=== PATIENT | female | born 1950 | race African-American/Black ===

== ENCOUNTER 2020-04-01 12:00 | Emergency (ER) | payer OTHER ==
--- OUTSIDE RECORDS SUMMARY | 2020-04-01 12:12 | XMS REPORT | Continuity of Care Document ---
:1950 Author Organization [employer] Care Team Providers Name Role Phone [employer] Unavailable Un available Problems Problem Status Onset Classification Date Comments Sourc e Date Reported DX: Active [place] [facility] Z80.3=FAMILY 0 HISTORY OF MALIGNANT NE N64.4 - Active OPID MASTODYNIA 9 Sugar Baldev d Z80.0 - FAMILY HISTOR DX: [facility] MALIGNANT NEOPLASM Z80.3 - FAMILY Active Memor ial HISTORY OF 9 [place],M H MALIGNANT NE N OPID [place] Mastodynia 10/12/2017 [place] 8 Z80.0 KNEE Active [place] REPLAC[place] 8 Z80.3 - FAMILY Active OP ID HISTORY OF 8 Sugar Baldev d MALIGNANT NE Family history 10/12/2017 [place] of malignant neoplasm of breast MASTODYNIA Active [facility] ast FAMILY HISTORY Active [place] MALIGNANT NEOPLASM OF Medications No Data Provided for This Section Allergies, Adverse Reactions, Alerts No Known Medication Allergies Immunizations No Data Provided for This Section Results Order Results Value Reference Date Interpretation Comments Source Name Range CHEM eGFR 54 PANEL 2018 Comment: [facility] eGFR is calculated using the CKD-EPI formula. In most young, healthy individuals the eGFR will be >90 mL/min/1.73m2. The eGFR declines with age. An eGFR of 60-89 may be normal in some populations, particularly the elderly, for whom the CKD-EPI formula has not been extensively validated. Use of the eGFR is not recommended in the following populations:<b r/>
Indivi duals with unstable creatinine concentrations , including patients and those with serious co-morbid conditions.

Patient s with extremes in muscle mass or diet.

The data above are obtained from the National Kidney Disease Education Program (NKDEP) which additionally recommends that when the eGFR is used in patients with extremes of body mass index for purposes of drug dosing, the eGFR should be multiplied by the estimated BMI. CHEM POC 1.2 0.5 - 1.[address] [facility] Pathology Reports No Data Provided for This Section Diagnostic Reports Report Value Date Source Breast Complete Steve 09/05/2019 [facility] BILATERAL DIGITAL DIAGNOSTIC MAMMOGRAM WITH CAD: 09/05/2019 CLINICAL: /Family History /Family History. Current study was evaluated with a Insurance Coordinator d Detection (CAD) system. COMPARISON:Comparison is mad e to exams dated: 07/14/2018 mammogram, 07/06/2017 mammogram - [facility], 07/06/2016 mammogram, 07/03/2015 mammogram, 06/27/2014 mammogram, and 06/27/2014 mammogra - [facility]. TECHNIQUE: Mammographic view s were obtained using digital acquisition. Mozendaa Version 1.3 was utilized for computer aided detection. FINDINGS: There are scattered fibroglandular densities in both breasts. There are benign calcificati ons in both breasts. There also is a biopsy clip in both breasts. No significant masses, calci fications, or other findings are seen in either breast. There has been no significant interval change. IMPRESSION: INCOMPLETE: NEEDS ADDITIONAL IMAGING EVALUATION RECOMMENDATION:No definite m ammographic evidence of malignancy or significant interval change. Ultrasound has been requested and will be perfor med at this time. The results were reviewed with the patient. COMPLETE ULTRASOUND OF BOTH BREASTS AND AXILLA: 09/05/2019 COMPARISON:Comparison is mad e to exams dated: 07/14/2018 mammogram, 07/06/2017 mammogram - [facility], 07/06/2016 mammogram, 07/03/2015 mammogram, 06/27/2014 mammogram, and 06/27/2014 mammogra - [facility]. TECHNIQUE: Current study was also evaluated with a Computer Aided Detection (CAD) system. Color flow and real-time ultrasound of both breasts four quadrants, retroareolar, and axilla regions were perfor med. Danielle scale images of the real-time examina tion were reviewed. FINDINGS: There is a small benign cyst right breast at 1 o'clock that is an incidental finding. Minimal bilateral duct ectasia is also noted. No abnormalities were seen s onographically in the left breast or either axilla. There has been no significant interval change. IMPRESSION: BENIGN RECOMMENDATION:There is no sonographic evidence of malignancy. A 1 year screening mammogram is recommended.(09/05/2020) The results were reviewed with the patient. For patients with elevated l ifetime risk of breast cancer (greater than 20%), additional surveillance with annual breast MRI is recommended. However, according to the computer calculated Radha model, thi s patient's lifetime risk is 6%. This was discus sed with the patient. This exam was interpreted at [id number] for [facility]. Sharlene Reid M.D. jt/:09/05/2019 15:24:43 [employer] Semicon[employer] Processor(s): Litzy Cooper, [facility]; Larisa Reid, [facility] letter sent: BI-RADS 1/2 OVERALL STUDY BIRADS: 2 Benign Breast Mammo Diag STEVE 09/05/2019 [facility] incl CAD MA BILATERAL DIGITAL DIAGNOSTIC MAMMOGRAM WITH CAD: 09/05/2019 CLINICAL: /Family History /Family History. Current study was evaluated with a Insurance Coordinator d Detection (CAD) system. COMPARISON:Comparison is mad e to exams dated: 07/14/2018 mammogram, 07/06/2017 mammogram - [facility], 07/06/2016 mammogram, 07/03/2015 mammogram, 06/27/2014 mammogram, and 06/27/2014 mammogra m - [facility]. TECHNIQUE: Mammographic view s were obtained using digital acquisition. Mozendaa Version 1.3 was utilized for computer aided detection. FINDINGS: There are scattered fibroglandular densities in both breasts. There are benign calcificati ons in both breasts. There also is a biopsy clip in both breasts. No significant masses, calci fications, or other findings are seen in either breast. There has been no significant interval change. IMPRESSION: INCOMPLETE: NEEDS ADDITIONAL IMAGING EVALUATION RECOMMENDATION:No definite m ammographic evidence of malignancy or significant interval change. Ultrasound has been requested and will be perfor med at this time. The results were reviewed with the patient. COMPLETE ULTRASOUND OF BOTH BREASTS AND AXILLA: 09/05/2019 COMPARISON:Comparison is mad e to exams dated: 07/14/2018 mammogram, 07/06/2017 mammogram - [facility], 07/06/2016 mammogram, 07/03/2015 mammogram, 06/27/2014 mammogram, and 06/27/2014 mammogra m - [facility]. TECHNIQUE: Current study was also evaluated with a Computer Aided Detection (CAD) system. Color flow and real-time ultrasound of both breasts four quadrants, retroareolar, and axilla regions were perfor med. Danielle scale images of the real-time examina tion were reviewed. FINDINGS: There is a small benign cyst right breast at 1 o'clock that is an incidental finding. Minimal bilateral duct ectasia is also noted. No abnormalities were seen s onographically in the left breast or either axilla. There has been no significant interval change. IMPRESSION: BENIGN RECOMMENDATION:There is no sonographic evidence of malignancy. A 1 year screening mammogram is recommended.(09/05/2020) The results were reviewed with the patient. For patients with elevated l ifetime risk of breast cancer (greater than 20%), additional surveillance with annual breast MRI is recommended. However, according to the computer calculated Radha model, thi s patient's lifetime risk is 6%. This was discus sed with the patient. This exam was interpreted at [id number] for [facility]. Sharlene gallardot/:09/05/2019 15:24:43 [employer] Semiconductor Processor(s): Litzy Cooper, [facility]; Larisa Reid, [facility] letter sent: BI-RADS 1/2 OVERALL STUDY BIRADS: 2 Benign Breast w/wo contrast 01/04/2019 JEREMIAS PETTY [facility] bilat MRI BREAST MRI OF BOTH BREASTS : 01/04/2019 CLINICAL: /Breast Ca Z80.3. COMPARISON:Comparison is mad e to exams dated: 07/14/2018 ultrasound, 07/14/2018 mammogram, 07/06/2017 breast MRI - [facility], 01/04/2017 breast MRI, 01/23/2016 breast MRI - [facility] Allison ging, and 07/06/2017 mammogram - [facility]. TECHNIQUE: Interpretation of this MRI was correlated with available mammograms, ultrasounds, previous MRI scans, and clinical information. Informed consent was obtained from the patient. 20 cc of Mult iHance contrast was injected . Axial T1 and T2 and sagittal T1 images were obtained with a dedicated breast coil. Post processing was performed including 3D multiplanar reconstruction. Exam was performed for evalu ation of the breasts only. Although the field of view includes portions of the chest, thoracic spine and the superior aspect of the abdomen, this exam is not diagnostic of t hese areas as it is not prot ocoled as such. These areas are masked by technical artifact and cardiac motion. FINDINGS: Bilateral background breast enhancement is moder ate. No suspicious mass or area of abnormal enhanceme nt is identified. There are no abnormalities s een in the axillary nodes region or internal mammary nodes. IMPRESSION: BENIGN RECOMMENDATION: There is no MRI evidence of malignancy. A screening mammogram in 6 m [facility] and a breast MRI in one year is recommended.(01/05/2020) This exam was interpreted at [id number] for [facility]. Elias Khan M.D. hh/:01/05/2019 08:50:45 Electronic Semiconductor Processor(s): SHENA RAMÍREZ RT, [facility] letter sent: BI-RADS 1/2 Dense MRI BI-RADS: 2 Benign Breast Complete Steve 07/14/2018 [facility] US COMPLETE ULTRASOUND OF BOTH BREASTS AND AXILLA: 07/14/2018 CLINICAL: Dense breasts and family hx. COMPARISON:Comparison is mad e to exams dated: 07/14/2018 mammogram, 07/06/2017 mammogram - [facility], 01/04/2017 ultrasound, 07/06/2016 mammogram, 07/06/2016 ultrasound, and 07/03/2015 ultr asound - [facility]. TECHNIQUE: Color flow and re al-time ultrasound of both breasts four quadrants, retroareolar, and axilla regions were performed. Danielle scale images of the real- time examination were reviewed. FINDINGS: There is a small benign oval shaped cyst with a circumscribed margin with internal echoes right breast at 12 o'clock that is an incidental finding. No abnormalities were seen s onographically in the left breast or either axilla. IMPRESSION: BENIGN RECOMMENDATION:There is no sonographic evidence of malignancy. A 1 year screening mammogram is recommended.(07/15/2019) The results were reviewed with the patient. This exam was interpreted at [id number] for [facility]. Sharlene gonzalez/tatyanarad:07/14/2018 12:06:16 [employer] Semiconductor Processor(s): August [facility] letter sent: BI-RADS 1/2 Ultrasound BI-RADS: 2 Benign Breast Mammo Diag STEVE 07/14/2018 [facility] incl CAD MA BILATERAL DIGITAL DIAGNOSTIC MAMMOGRAM WITH CAD: 07/14/2018 CLINICAL: /Family History. Current study was evaluated with a Insurance Coordinator d Detection (CAD) system. COMPARISON:Comparison is mad e to exams dated: 07/06/2017 mammogram - [facility], 07/06/2016 mammogram, 07/03/2015 mammogram, 06/27/2014 mammogram, 06/27/2014 mammogram, and 01/18/2014 mammogr am - [facility]. TECHNIQUE: Mammographic view s were obtained using digital acquisition. Arkadiumovia Version 1.3 was utilized for computer aided detection. FINDINGS: The tissue of both breasts i s heterogeneously dense, which could obscure detection of small masses. There are benign calcificati ons and lymph nodes in both breasts. There also are benign scattered densities in both breasts. Additionally, there is a biopsy clip in both breasts. No significant masses, calci fications, or other findings are seen in either breast. There has been no significant interval change. IMPRESSION: INCOMPLETE: NEEDS ADDITIONAL IMAGING EVALUATION RECOMMENDATION:No definite m ammographic evidence of malignancy or significant interval change. Ultrasound evaluation is pending. The results were reviewed with the patient. This exam was interpreted at [id number] for [facility]. SUMMARY: Ultrasound will be performed at this time; please see dedicated separate report. Sharlene gonzalez/penrad:07/14/2018 11:53:16 Electronic Semiconductor Processor(s): Kim Montgomery, Me levi [facility] Mammogram BI-RADS: 0 Indeterminate Breast Mammo Scrn STEVE 07/06/[address] [facility] [address] incl CAD MA BILATERAL DIGITAL SCREENING MAMMOGRAM WITH CAD: 07/06/2017 CLINICAL: /Screen. Current study was evaluated with a Insurance Coordinator d Detection (CAD) system. COMPARISON:Comparison is mad e to exams dated: 07/06/2016 mammogram, 07/03/2015 mammogram, 06/27/2014 mammogram, 01/18/2014 mammogram, 07/29/2013 mammogram, and 12/14/2012 mammogram - [facility]. TECHNIQUE: Mammographic view s were obtained using digital acquisition. Mozendaa Version 1.3 was utilized for computer aided detection. FINDINGS: The tissue of both breasts i s heterogeneously dense, which could obscure detection of small masses. There are benign calcificati ons and lymph nodes in both breasts. There also are benign scattered densities in both breasts. Additionally, there is a biopsy clip in both breasts. No significant masses, calci fications, or other findings are seen in either breast. There has been no significant interval change. IMPRESSION: BENIGN RECOMMENDATION:There is no m ammographic evidence of malignancy. A 1 year screening mammogram is recommended.(07/07/2018) This exam was interpreted at [id number] for [facility] Breast Bowen. Sharlene gonzalez/penrad:07/06/2017 12:33:43 [employer] Semiconductor Processor(s): Yannick Cervantes [facility] letter sent: BI-RADS 1/2 Mammogram BI-RADS: 2 Benign Breast w/wo contrast Patient Name: TANESHA LOBO 018 [facility] bilat MRI : 1950; Age: 67 years y/o Female MR: [id number] Study: Breast w/wo contrast bilat MRI 07/06/2017 9:32 AM CDT Ordering Physician: Magnus Brooke MD Clinical Indication: Marcos viera patient reports a family history of breast cancer in her sister with prior abnormal mammograms and benign breast biopsies.; Comparison: Prior breast MRI 01/04/2017; comparison is also made with mammogram of today's date as well as prior mammogram and breast ultrasounds dating back to December 15, 2007 BILATERAL BREAST MAGNETIC RESONANCE IMAGING WITH OUT AND WITH CONTRAST TECHNIQUE: Bilateral breast MRI was performed on a 1.5 Nikki magnet with a dedicated breast coil. Sagittal, axial, and axial subtraction imaging of the contrast enhanced dynamic images was performed. 11 ccs of Multihance contrast was administered during the postinfusion portion of the exam. Post processing images include postcontrast subtraction, maximum intensity projection, and reconstructed multipl eliseo images. Exam was perfor med for evaluation of the breasts only. Although the field of view includes portions of the chest, thoracic spine, and superior aspect of the abdomen, this exam is not diagno stic for those areas as it i s not protocoled as such. These areas are limited by technical artifacts and cardiac motion. Times signal intensity curves were also analyzed using a W-21 workstation vers [id number]. All measur ements provided below are in the anterior-posterior X width X craniocaudal format. Postmenopausal patient. 11ml Multihance (Half Dose) Power Inject @ 2.0ml/sec Lot:[id number] Exp: Cre:1.2 GFR:54. Tech:Suresh Peralta FINDINGS: Right breast: Moderate backg round enhancement is present. Numerous nonspecific enhancing foci are present. No suspicious enhancement throughout the right breast. No internal mammary chain or axillary ch ain adenopathy. The skin and nipple-areolar comp janay appear unremarkable. Left breast: Moderate backgr ound enhancement is present. Numerous nonspecific enhancing foci are present. No suspicious enhancement throughout the left breast. No internal mammary chain or axillary kia n adenopathy. The skin and nipple-areolar comple x appear unremarkable. IMPRESSION: No MRI evidence of malignancy in either breast. No adenopathy throughout the exam. Please correlate with screen ing mammogram exam of today's date, results pending. Follow-up with ACR/SBI guidelines. ACR BI-RADS CATEGORY 1 - NEGATIVE EXAM SL: 13 SL: [id number] Thank you for allowing [facility] to participate in the care of your patient. Breast w/wo contrast 01/04/2017 [facility] MRI BREAST MRI OF BOTH BREASTS : 01/04/2017 CLINICAL: /N64.4 Mastodynia, Z80.3 Fam Hx HIgh risk screening. Family history of breast cancer: sister at 54. Dense breasts. COMPARISON:Comparison is mad e to exams dated: 01/04/2017 ultrasound, 07/06/2016 ultrasound, 01/23/2016 breast MRI, 01/21/2015 breast MRI, 01/18/2014 breast MRI, and 07/06/2016 mammogram - [facility]. TECHNIQUE: MRI images were obtained with a dedic ated breast MRI. INFORMED CONSENT: The procedure, risks, compli cations, benefits, and alternatives were discussed with the patient. The patient expressed understanding and desired to proceed. RENAL EVALUATION FOR GADOLINIUM CONTRAST INJECTI ON: Amount of MultiHance injected: 21 cc's Cr (mg/dL using I-STAT Device): 1.2 Estimated GFR: (ml/min): 54 (within normal limit s for gadolinium injection) TECHNIQUE: High resolution 1.4 mm RODEO plus, axial acquisitions were obtained of both breasts using an Product[employer]ev 1.5 Nikki dedicated breast MRI preceding and following the administration of MultiHance, subtraction, 2D and 3D maximum intensity projections (MIP), multiplanar reconstructions (MPR) and ILEANA Time Activity curves were performed on the Physician's Review Station with [employer]. MRI FINDINGS: RIGHT BREAST FINDINGS: The breast is heterogenously dense. There is moderate background enhancement. There is no abnormal enhance ment in the region of the mixed echogenicity at right 6-9:00. There is no abnormal enhancement, mass, or archi tectural distortion. There are no abnormal-appear ing lymph nodes in the axilla, internal mammary chain, and within the breast. There is no abnormality in the nipple-areolar co mplex. There is no abnormality in the chest wall struct ures. There is no abnormality in the skin structures. There is some motion artifact. LEFT BREAST FINDINGS: The breast is heterogenously dense. There is moderate background enhancement. There is no abnormal enhance ment in the region of the mixed echogenicity at left retroareolar region. There is no abnormal enhancement, mass, or archi tectural distortion. There are no abnormal-appear ing lymph nodes in the axilla, internal mammary chain, and within the breast. There is no abnormality in the nipple-areolar co mplex. There is no abnormality in the chest wall struct ures. There is no abnormality in the skin structures. There is some motion artifact. IMPRESSION: BENIGN There is no MRI evidence of malignancy. PLEASE REFER TO SAME DAY ULTRASOUND REPORT. This exam was interpreted at [id number] for [facility]. Sha Flores M.D. mt/:01/07/2017 09:30:55 Electronic Semiconductor Processor(s): Beck, [facility] letter sent: BI-RADS 1/2 MRI BI-RADS: 2 Benign Breast Limited Steve US 01/04/2017 [facility] LIMITED ULTRASOUND OF BOTH BREASTS: 01/04/2017 CLINICAL: /N64.4 Mastodynia Recent imaging report indicates: ' The area in the right hayley ast from 6 - 9 o'clock in the retroareolar region likely represents fibroglandular tissue and is probably benign. The area in the left breast central to the nipple in the retroareolar region likely represents fibroglandular tissue and is probably benign. A follow-up ultrasound in 6 months is re commended to demonstrate stability. '. COMPARISON:Comparison is mad e to exams dated: 07/06/2016 ultrasound, 07/06/2016 mammogram, 07/03/2015 ultrasound, 01/23/2016 breast MRI, 07/03/2015 mammogram, and 01/04/2017 [facility]. TECHNIQUE: Real-time ultraso und of both breasts was performed. Targeted ultrasound was done in the areas of interest. FINDINGS: There is a stable area in th e right breast from 6 - 9 o'clock in the retroareolar region. This area is of mixed echogenicity. Color flow imaging demonstrates that there is no vascularity present. There is a stable area in th e left breast central to the nipple in the retroareolar region. This area is of mixed echogenicity. Color flow imaging demonstrates that there is no vascularity present. There is no abnormal enhancement in these region s on same day MRI. IMPRESSION: PROBABLY BENIGN The stable area in the right breast from 6 - 9 o'clock in the retroareolar region likely represents fibroglandular tissue and is probably benign. The stable area in the left breast central to the nipple in the retroareolar region likely represents fibroglandular tissue and is probably benign. The patient is due for bilat eral mammogram in June 2017. Ultrasound is also recommended at that time for follow-up. This exam was interpreted at [id number] for [facility]. Sha Flores M.D. mt/:01/07/2017 09:57:38 Electronic Semiconductor Processor(s): Soumya Bangura R.D.M.S, [facility] letter sent: BI-RADS 3 Ultrasound BI-RADS: 3 Probably benign Breast Complete Steve - BREAST COMPLETE STEVE US 07/06/2016 [facility] US ULTRASOUND OF BOTH BREASTS: 07/06/2016 CLINICAL: Z80.3 Family His tory Of Malignant Neoplasm Of Breast. Family history of breast cancer includes: Sister at age 47. Comparison is made to exams dated: 01/23/2016 breast MRI, 07/03/2015 ultrasound, 07/03/2015 mammogram, 01/21/2015 breast MRI, 06/27/2014 ultrasound and 06/27/2014 mammogram - [facility]. Real-time ultrasound of both breasts was perform ed. The entire right and left br easts were evaluated including all four quadrants, subareolar region, axilla, and axillary tail. There are no abnormal-appearing lymph nodes in b oth axilla. There is an area in the righ t breast from 6 - 9 o'clock in the retroareolar region. This area is of mixed echogenicity. Color flow imaging demonstrates that there is no vascularity present. There is an area in the left breast central to the nipple in the retroareolar region. This area is of mixed echogenicity. Color flow imaging demonstrates that there is no vascularity present. IMPRESSION: PROBABLY BENIGN - FOLLOW-UP RECOMMEN DED The area in the right breast from 6 - 9 o'clock in the retroareolar region likely represents fibroglandular tissue and is probably benign. The area in the left breast central to the nipple in the retroareolar region likely represents fibroglandular tissue and is probably benign. A follow-up ultrasound in 6 months is recommende d to demonstrate stability. This could be done when the patient is due for her annual screening MRI in December 2016. Sha Flores M.D. mt/:07/06/2016 16:13:41 Electronic Semiconductor Processor: Elizabet Aguilar, [facility] This exam was dictated and i nterpreted by [id number] for [facility]. letter sent: Followup Ultrasound BI-RADS: 3 Probably benign Breast Mammo Diag STEVE - BREAST MAMMO DIAG STEVE INCL CAD MA 2016 [facility] incl CAD MA BILATERAL DIGITAL DIAGNOSTIC MAMMOGRAM WITH CAD: 07/06/2016 CLINICAL: Z80.3 Family His tory Of Malignant Neoplasm Of Breast. Family history of breast cancer includes: Sister at age 47. Current study was evaluated with a Insurance Coordinator d Detection (CAD) system. Comparison is made to exams dated: 01/23/2016 breast MRI, 07/03/2015 ultrasound, 07/03/2015 mammogram, 01/21/2015 breast MRI, 06/27/2014 ultrasound and 06/27/2014 mammogram - [facility]. 2013 2012 2010 2009 2008 The tissue of both breasts i s heterogeneously dense, which could obscure detection of small masses. There are lymph nodes in both breasts stable sin ce 2008. There also are benign scatte red calcifications and densities in both breasts. Additionally there is a biopsy clip in both breasts. No significant masses, calci fications, or other findings are seen in either breast. IMPRESSION: INCOMPLETE: NEEDS ADDITIONAL IMAGING EVALUATION PLEASE SEE SAME DAY ULTRASOUND REPORT. Sha Flores M.D. mt/:07/06/2016 16:13:41 Electronic Semiconductor Processor: Elizabet Aguilar, [facility] This exam was dictated and i nterpreted by [id number] for [facility]. letter sent: Followup Mammogram BI-RADS: 0 Indeterminate Breast w/wo contrast - BREAST W/WO CONTRAST BILAT MRI 01/23/2016 [facility] bilat MRI BREAST MRI OF BOTH BREASTS : 01/23/2016 CLINICAL: HISTORY: 65 yo hig h risk female presents for annual. The patient has the following family history of breast cancer: sister at 54. Prior bilateral benign core biopsies and RIGHT excisional biopsy. Prior MARIAMA. No HRT. Comparison is made to exams dated: 07/03/2015 ultrasound, 07/03/2015 mammogram, 01/21/2015 breast MRI, 06/27/2014 ultrasound, 06/27/2014 mammogram and 01/18/2014 mammogram - [facility]. INFORMED CONSENT: The proce dure was explained to the patient including possible risks, benefits, complications and alternatives. The patient understood and desired to proceed. PRE GADOLINIUM CONTRAST INJECTION LABORATORY TE STING: The patient's creatinine and GFR were assessed with the I-STAT DEVICE. Creatinine measured 1.2 mg/dL and GFR 54. These values are considered within tolerance and safe for injection. TECHNIQUE: High resolution 1.4 mm RODEO plus, axial acquisitions were obtained of both breasts using an Producteev 1.5 Nikki dedicated breast MRI preceding and following the administration of 20 cc&apo s;s of Omniscan, subtraction , 2D and 3D maximum intensity projections (MIP), multiplanar reconstructions (MPR) and ILEANA Time Activity curves were performed on the Physician's Review Station with [employer]. MRI FINDINGS: RIGHT BREAST FINDINGS: I do not identify any definite evidence of spiculated or linear beaded enhancement to suggest malignancy. The nipple-areolar complex appears to be unremarkable. The visualized ly mph nodes appear architectur ally preserved. The chest wall structures appear normal. No internal mammary adenopathy. LEFT BREAST FINDINGS: I do n ot identify any definite evidence of spiculated or linear beaded enhancement to suggest malignancy. The nipple-areolar complex appears to be unremarkable. The visualized lym ph nodes appear architectura lly preserved. The chest wall structures appear normal. No internal mammary adenopathy. IMPRESSION: BENIGN 1. THERE IS NO DEFINITE MRI EVIDENCE TO SUGGEST MALIGNANCY IN EITHER BREAST AND NO SIGNIFICANT CHANGE. RECOMMENDATION: 1. Recommend a BILATERAL anthony mogram and BILATERAL breast ultrasound in June, and an MRI in ONE YEAR to stay on high risk screening protocol. Suellen Walters M.D. sg/:01/28/2016 14:56:05 Electronic Semiconductor Processor: Irvin Joyner [facility] This exam was dictated and i nterpreted by [id number] for [facility]. letter sent: Bilateral Benign MRI BI-RADS: 2 Benign Breast Complete Steve - BREAST COMPLETE STEVE US 07/03/2015 Keon Beaver US ULTRASOUND OF BOTH BREASTS AND BOTH AXILLA: 2015 CLINICAL: N64.4 Mastodynia Family history of breast cancer includes: Sister at age 54. Comparison is made to exams dated: 01/21/2015 breast MRI, 06/27/2014 ultrasound, 01/18/2014 mammogram, 06/27/2014 mammogram, 01/18/2014 breast MRI and 07/29/2013 mammogram - [facility]. Color flow and real-time ult rasound of both breasts and both axilla were performed. No abnormalities were seen s onographically in either breast or either axilla. There is no significant mass in either breast. IMPRESSION: NEGATIVE - FOLLOW-UP RECOMMENDED There is no sonographic evidence of malignancy. A follow-up breast MRI in 6 months is recommended to demonstrate stability in this high risk patient. Breezy Conrad M.D. bf/:07/03/2015 13:25:11 Electronic Semiconductor Processor: Doretha Hernandez R.D.M.S, [facility] This exam was dictated and i nterpreted by [id number] for [facility]. letter sent: Normal exam Ultrasound BI-RADS: 1 Negative Digital Mammo DX Steve - DIGITAL MAMMO DX STEVE MA W KYLE 07/03/2015 [facility] MA w kyle BILATERAL DIGITAL DIAGNOSTIC MAMMOGRAM 3D/2D WIT H CAD: 07/03/2015 CLINICAL: Abnormality On Ano ther Imaging Study, Family history of breast cancer includes: sister age 54. 2D digital mammographic imag es and 3D digital tomosynthesis images were obtained in the CC and MLO projections. Current study was evaluated with a Insurance Coordinator d Detection (CAD) system. Comparison is made to exams dated: 01/21/2015 breast MRI, 06/27/2014 ultrasound, 06/27/2014 mammogram, 01/18/2014 mammogram, 01/18/2014 breast MRI and 07/29/2013 mammogram - [facility]. The tissue of both breasts i s heterogeneously dense, which could obscure detection of small masses. There are benign scattered d ensities in both breasts. There also is a biopsy clip in both breasts. Additionally there are post operative findings in the right breast. No significant masses, calci fications, or other findings are seen in either breast. There has been no significant interval change. IMPRESSION: BENIGN There is no mammographic kaity dence of malignancy. A 1 year screening mammogram is recommended. Breezy snell/sabine:07/03/2015 13:20:08 Electronic Semiconductor Processor: Nyasia Chahal, [facility] This exam was dictated and i nterpreted by [id number] for [facility]. letter sent: Normal exam Mammogram BI-RADS: 2 Benign Consultation Notes No Data Provided for This Section Discharge Summaries No Data Provided for This Section History and Physicals No Data Provided for This Section Vital Signs No Data Provided for This Section Encounters Location Location Encounter Encounter Reason Attending [facility] Stat Source Details Type Number For Provider Date Date Visit [facility] Outpt Diag [id number] [place] 07/02 07/03 [facility] Outpatient Services [facility] Outpt Diag [id number] [place] 01/22 01/23 [facility] Outpatient Services [place] [facility] Outpt Diag [id number] [place] 07/06 07/07 [facility] Outpatient Services Vi [facility]ory [facility] - [facility] Outpt Diag [id number] [place] 01/04 01/05 [facility] Outpatient Services Edwardo Vi ctory [facility] Outpt Diag [id number] [place] 06/24 06/24 [facility] Outpatient [id number] [place] 07/06 07/07 [facility] [place] /2017 [facility] Outpatient [id number] [place] 07/14 07/15 [facility] Outpt Diag [id number] [place] 01/04 01/05 [facility] Edwardo [facility] Outpatient [id number] [place] 09/04 09/05 [facility] /2019 [facility] Procedures No Data Provided for This Section Assessment and Plan No Data Provided for This Section Plan of Care No Data Provided for This Section Social History Social History Date Source Social History TypeResponse 09/06/2019 [place] No data available for this 01/05/2019 [facility] Cynthia nn section No data available for this 06/24/2017 [facility] [place] section No data available for this 01/05/2017 [facility] Family History No Data Provided for This Section Advance Directives No Data Provided for This Section Functional Status No Data Provided for This Section
--- OUTSIDE RECORDS SUMMARY | 2020-04-01 12:12 | XMS REPORT | Continuity of Care Document ---
:1950 Author Organization [facility] t Address [address] [place] [address] Care Team Providers Name Role Phone Vtc-Lab Attending Clinician Unavailable Delano LEWIS Attending Clinician Rajendra Brooke Attending Clinician Problems Condition Condition Condition Status Onset Resolution Last Treating Co mments Source Name Details Category Date Date Treatment Clinician Date DX: Diagnosis Active 2019-09-05 Mem oria Z80.3=FAMI 6-02 12:55:00 l LY HISTORY DX: 00:00: Kev n OF Z80.3=FAMI 00 MALIGNANT LY HISTORY NE OF MALIGNANT NE Active 0 [facility] [place] N64.4 - Diagnosis Active 2019-05-12 Me moria MASTODYNIA 10 12:52:00 l Z80.0 - N64.4 - 00:01: Kev n FAMILY MASTODYNIA 00 HISTOR Z80.0 - FAMILY HISTOR Active 12/06/2018 [facility] [place] DX: FAMILY Diagnosis Active 2018-07-14 Memoria HISTORY OF 10 10:45:00 l MALIGNANT DX: 00:00: [place] NEOPLASM FAMILY 00 HISTORY OF MALIGNANT NEOPLASM Active 07/06/2018 [place] Z80.3 - Diagnosis Active 2018-08-06 Me moria FAMILY 4-04 15:53:00 l HISTORY OF Z80.3 - 00:01: Her larios MALIGNANT FAMILY 00 NE N HISTORY OF MALIGNANT NE N Active 06/30/2018 Gayle Beaver DORITAD [place] Z80.0 Diagnosis Active 2017-07-06 Mem oria KNEE 06-16 09:28:00 l REPLACEMEN Z80.0 00:00: [place]thia nn T KNEE 00 REPLACEMEN T Active 06/16/2017 [place] Z80.3 - Diagnosis Active 2017-09-15 Me moria FAMILY 3-19 16:46:00 l HISTORY OF Z80.3 - 00:01: Her larios MALIGNANT FAMILY 00 NE HISTORY OF MALIGNANT NE Active 8 [facility] [place] Family Problem 2017-10-12 Memor ia history of 12:13:03 l malignant Family Cynthia nn neoplasm history of of breast malignant neoplasm of breast 10/12/2017 [place] MASTODYNIA Diagnosis Active 2019-09-05 Memoria 12:55:00 l Sd MASTODYNIA Active [place] FAMILY Diagnosis Active 2019-09-05 Mem oria HISTORY OF 12:55:00 l MALIGNANT FAMILY Cynthia nn NEOPLASM HISTORY OF OF MALIGNANT NEOPLASM OF Active [place] Mastodynia Problem 2017-10-12 2017-10-12 Memoria 07-14 12:13:03 12:13:03 l 03:47: [place] Mastodynia 52 07/14/2017 10/12/2017 [facility] Allergies, Adverse Reactions, Alerts This patient has no known allergies or adverse reactions. Social History Social Habit Start Date Stop Date Quantity Comments Source Social History 2017-01-05 2017-01-05 [facility] miquel 04:59:00 04:59:00 Medications This patient has no known medications. Procedures This patient has no known procedures. Encounters Start End Encounter Admission Attending Care Care Encounter Source Date/Time Date/Time Type Type Clinicians Facility Department ID 2020-03-25 2020-03-25 Optical Coating Technician Vtc-Lab [facility] [id number] 10:58:13 11:13:13 Visit MULTISPEC 350.1.13.10 [place]ALT[place] 4.2.7.2.686 [place] [id number] [facility] 2020-03-25 2020-03-25 Office Delano WIDEANNA [id number] 10:14:24 11:03:18 Visit Paty MULTISPEC 350.1.13.10 [place]ALT[place]ia 4.2.7.2.686 [place] [id number] [facility] 2019-09-05 2019-09-05 Outpatient MARYCRUZ Brooke [facility] [id number] 12:45:00 23:59:00 Magnus Rajendra 2019-09-05 2019-09-05 Outpatient MHSE JONATHAN [id number] MH 12:45:00 12:45:00 [facility] 2019-01-04 2019-01-04 Outpatient Edwardo, MHOIH MHOIH [id number] 11:49:00 23:59:00 Magnus Rajendra 2018-07-14 2018-07-14 Outpatient Edwardo, MHSE MHSE [id number] 10:45:00 23:59:00 Magnus Rajendra 2018-07-14 2018-07-14 Outpatient MHSE JONATHAN [id number] MH 10:45:00 10:45:00 [facility] 2017-07-06 2017-07-06 Outpatient Edwardo, MHSE MHSE [id number] 09:19:00 23:59:00 Magnus Rajendra 2017-07-06 2017-07-06 Outpatient Edwardo, MHSE MHSE [id number] 09:19:00 23:59:00 Magnus Rajendra 2017-06-24 2017-06-24 Outpatient Edwardo, MH29 MH29 [id number] 10:00:00 10:00:00 Magnus Rajendra 04 2017-01-04 2017-01-04 Outpatient Edwardo, 2.16.840. [id number]. [id number] 10:00:00 23:59:00 Magnus Rajendra [id number] 5.108 2016-07-06 2016-07-06 Outpatient Edwardo, 2.16.840. 2.16.840.1. [id number] 08:54:00 23:59:00 Magnus Rajendra [id number] 3.615.108 5.108 2016-01-23 2016-01-23 Outpatient Edwardo, 2.16.840. 2.16.840.1. [id number] 10:11:00 23:59:00 Magnus Rajendra [id number] 3.615.108 5.108 2015-07-03 2015-07-03 Outpatient Edwardo, 2.16.840. 2.16.840.1. [id number] 07:45:00 23:59:00 Magnus Rajendra [id number] 3.615.108 5.108 Results Test Description Test Time Test Comments Results Result Comments Source CHEM PANEL 2017-07-06 54 [facility] Cynthia 14:59:00 CHEM PANEL 2017-07-06 [facility] 14[facility]
--- OUTSIDE RECORDS SUMMARY | 2020-04-01 12:13 | XMS REPORT | Summary of Care ---
:1950 Author Organization [facility] Address [address] [place] [address] Care Team Providers Name Role Phone Hugo Ried Primary Care Provider Reason for Referral (Routine) Status Reason Specialty Diagnoses / Referred By Referred To Procedures Contact Contact New Request Nephrology Diagnoses Elevated serum creatinine Griffin Monge Procedures CONSULT/REFERRAL NEPHROLOGY MD Hugo [address] [place], [place] [id number] [place] [address] Reason for Visit Reason Comments Follow-up Encounter Details Date Type Department Care Team Description 2020 Office Visit [facility] Luis Garcia MD Erosive osteoarthritis (Primary Dx); Rheumatology-[address], unspecified type; [facility] Chronic gout of foot, unspecified cause, unspecified laterality; Ctr [place], [place] CRP elevated; [address] [facility] [phone] Long-term use of high-risk medication; [facility], Entrance B [phone] [place] [address] Allergies Active Allergy Reactions Severity Noted Date Comments Codeine Rash 03/08/2017 documented as of this encounter (statuses as of 2020) Medications Medication Sig Dispensed Refills Start End Date Status Date metFORMIN 850 mg Take 850 mg 0 A ctive tablet by mouth 2 (two) times daily with meals. NEBIVOLOL HCL Take by 0 Active (BYSTOLIC ORAL) mouth. omeprazole 20 mg Take 20 mg 0 Ac tive capsule by mouth daily. atorvastatin 20 mg Take 10 mg 0 Active tablet by mouth at bedtime. aspirin (ASPIRIN LOW Take 81 mg 0 Active DOSE) 81 mg EC tablet by mouth daily. calcium carbonate-mag Take by 0 Active hydroxid 1,000-200 mg mouth. Chew budesonide-formoterol Inhale 2 0 Active (SYMBICORT) 80-4.5 Puffs 2 mcg/actuation inhaler (two) times daily. MAGNESIUM ORAL Take 500 mg 0 Act tom by mouth. FLUTICASONE 0 Active PROPIONATE, BULK, MISC Diclofenac Sodium 1 % Apply 1gram 100 g 2 Active gelIndications: to affected 0 Erosive osteoarthritis area twice daily lisinopriL 2.5 mg 0 Ac tive tablet 0 memantine 10 mg tablet 0 Active 0 dulaglutide inject 1.5 0 Active (TRULICITY) 1.5 mg/0.5 mg under the mL PnIj skin weekly. cyclosporine (RESTASIS Place in 0 Active OPHTHALMIC) each eye 2 (two) times daily. icosapent ethyL Take by 0 Acti ve (VASCEPA) 1 gram mouth daily. capsule allopurinoL 300 mg Take 1 90 tablet 1 A ctive tabletIndications: tablet by 0 Chronic gout of foot, mouth daily. unspecified cause, unspecified laterality foLIC acid 1 mg tablet Take 1 mg by 0 11/15 Discontinued mouth daily. 20 (Patien t Reported) L. ACIDOPHILUS/BIFIDO Take by 0 03/05/20 Discontinued LONGUM (PROBIOTIC mouth. 20 (P atient PEARLS ORAL) Reporte d) cyclobenzaprine 10 mg Take 10 mg 0 0 Discontinued tablet by mouth 3 20 (Patient (three) Reported) times daily. LOVAZA, [id number] Take by 0 03/05/20 Discontinued ethyl esters, 1 gram mouth. 20 (Patient capsule Reported) hyoscyamine 0.125 mg Take 0.125 0 03/05/20 Discontinued tablet mg by mouth. 20 (Patien t Reported) OXYMETAZOLINE HCL Use in each 0 03/05/20 Discontinued (SINUS NASAL SPRAY nostril. 20 ( Patient NASAL) Reported) IMMUNE GLOB/PLASMA FRA Take by 0 0 Discontinued BOVINE (ENTERAGAM mouth. 20 (P atient ORAL) Reported) methscopolamine 5 mg Take 5 mg by 0 Discontinued tablet mouth at 20 (Patient bedtime. Reported) hydroxychloroquine Take 1 180 tablet 2 03/05/20 Discontinued (PLAQUENIL) 200 mg tablet by 0 20 ( Patient tabletIndications: mouth 2 R eported) Erosive osteoarthritis (two) times daily with meals. allopurinoL 300 mg Take 1 90 tablet 1 03/05/20 D iscontinued tabletIndications: tablet by 0 20 ( Reorder) Chronic gout of foot, mouth daily. unspecified cause, unspecified laterality sulfaSALAzine 500 mg 500 mg 2 0 03/05/20 Discontinued tablet (two) times 0 20 (Patient daily. Reported) chlorthalidone 25 mg 0 03/05/20 Discontinued tablet 0 20 (Patient Reported) levothyroxine 50 mcg 0 03/05/20 Discontinued tablet 0 20 (Patient Reported) documented as of this encounter (statuses as of 2020) Active Problems Problem Noted Date Stroke 10/08/2018 Long-term use of Plaquenil 10/05/2017 ESR raised 10/05/2017 Primary osteoarthritis involving multiple joints 09/07 Sicca 09/07/2017 Immunization counseling 09/07/2017 Pain in both hands 09/07/2017 Hypovitaminosis D 09/07/2017 Chronic gout of foot 09/07/2017 documented as of this encounter (statuses as of 2020) Social History Tobacco Use Types Packs/Day Years Used Date Never Smoker Smokeless Tobacco: Never Used Alcohol Use Drinks/Week oz/Week Comments No Sex Assigned at Date Recorded Not on file COVID-19 Exposure Response Date Recorded In the last month, have you been in contact with No / Unsure 2020 10:14 AM DIETICIAN someone who was confirmed or suspected to have Coronavirus / COVID-19? documented as of this encounter Last Filed Vital Signs Vital Sign Reading Time Taken Comments Blood Pressure 132/79 2020 10:35 AM DIETICIAN Pulse 81 2020 10:35 AM DIETICIAN Temperature 36.7 C (98 F) 2020 10:35 AM DIETICIAN Respiratory Rate 16 2020 10:35 AM DIETICIAN Oxygen Saturation 97% 2020 10:35 AM DIETICIAN Inhaled Oxygen Concentration - - Weight 107.2 kg (236 lb 4.8 oz) 2020 10:35 AM DIETICIAN Height 162.6 cm (5' 4") 2020 10:35 AM DIETICIAN Body Mass Index 40.56 2020 10:35 AM DIETICIAN documented in this encounter Patient Instructions Patient InstructionsLuis Garcia MD - 2020 10:30 AM CSTPlease get the labs done (future orders in place) Please continue taking Allopurinol 300 mg po Qdaily Please follow up with Nephrology and PCP Return to clinic in 4-5 months ICIAN documented in this encounter Progress Notes Lexy Enamorado LVN - 2020 10:30 AM CSTLaurel Hassan is a 70 year old female here today for F/U, allergies reviewed. Luis Russell MD - 2020 10:30 AM CST Rheumatology Progress Note Laurel Hassan DOS: 2020 SOCOR[place]: 11/21/19 Chief Complaint/Reason for Visit: joint pains/sicca HPI/Interval history: Laurel Hassan is a 70 year old Black or female with past medical history significant for Gout/ DM/HTN/CAD/HLD/ s/p Rt TKA. Here for f/u on joint pains/sicca and gout. Had Heberdens Nodes, Pt was started on Plaquenil 200 mg po BID for erosive OA and ran out of medication in Feb 2019. Says had Ophthalmology exam Apr 17, 2019 non [facility]. Says they dilated her eyes and examined her eyes. Advised patient to follow up with Ophthalmology for Plaquenil toxicity. Says never been on Methotrexate or Sulfasalazine. Lost all her teeth due to poor oral hygiene( no dryness then) Dad with arthritis( ?RA). On the visit on 11/21/2019 for Gout on Allopurinol 300 mg po Qdaily. Plaquenil was discontinued. There was no synovitis at the time of last visit. In 11/2019 based on discussion with PCP Dr Reid, she did have swelling, could it be 2/2/ out flare?PCP started on Prednisone and SSZ (PCP gave her Prednisone 10 mg po BID then 5 mg po BID and 5 mg poQd and then stopped. Pt responded well to that Pt's G6PD was normal, was started on SSZ 500 mg po BID by PCP) and later wanted to d/c SSZ but patient wanted to continue SSZ. As discussed with Dr Monge , The symptoms could primarily by 2/2 Gout and at this time, may not need Sulfasalazine and we recommended to discontinue it. Today, On Allopurinol 300 mg po Qdaily , last Gout attack a while ago. Not on Plaquenil or SSZ (discontinued around 10/2019) Eats red meat and seafood . Denies alcohol, takes apple juice. Advised to avoid red meat , seafood, alcohol, soda, high fructose corn syrup. Says unable to make a full fist and has poor steeping press tender strength. eeded. Result review: 08/2017: Hgb 12.3, plt 351, Cr 1.1, AST 34, ALT 37, SPEP WNL, Qft/HCV/HIV Neg, FLOYD/RF/CCP/SSA/SSB Neg, ESR 36, CRP 1.3, UA 3.6, Vit D 76 Allergies Allergen Reactions Codeine Rash Outpatient Medications Marked as Taking for the 03/05/20 encounter (Office Visit) with Luis Garcia MD Medication Sig Dispense Refill allopurinoL 300 mg tablet Take 1 tablet by mouth daily. 90 tablet 1 cyclosporine (RESTASIS OPHTHALMIC) Place in each eye 2 (two) times daily. dulaglutide (TRULICITY) 1.5 mg/0.5 mL PnIj inject 1.5 mg under the skin weekly. icosapent ethyL (VASCEPA) 1 gram capsule Take by mouth daily. PHYSICAL EXAM Vitals: 03/05/20 1035 BP: 132/79 Pulse: 81 Resp: 16 Temp: 36.7 C (98 F) SpO2: 97% Weight: 236 lb 4.8 oz (107.2 kg) Height: 5' 4" (1.626 m) Gen: Alert and oriented x 3. In no distress. HEENT: PERRL, EOMI. No inflammation seen. Scalp and temporal arteries are normal and non-tender. External examination and palpation of the ears and nose normal. Lips, teeth, and gums normal. Oropharynxand tongue normal. No lesions or exudate. No mass or asymmetry. Thyroid without mass or tenderness. Resp: Normal respiratory effort. Clear to auscultation. No wheezes CV: RRR without gallop, murmur, or rub. No edema. GI: BS normal. No bruits, No tenderness or obvious mass. Lymphatic: Normal exam of the neck. Skin: No rash, thickening, nodules, discoloration. Musculoskeletal: Neck: Good flexion/extension/lateral rotation Shoulders: No swelling, no tenderness, good ROM Elbows: No swelling, no tenderness, no flexion contractures, no nodules, good ROM Wrists: No swelling, no tenderness, no limitation in flexion and extension MCP: No evidence of synovitis PIP: No evidence of synovitis DIP: No evidence of synovitis , Heberdens nodes Able to make full fist bilaterally Hips: Good ROM Knees: No effusion Ankles: No swelling, no tenderness, good ROM Feet/Toes/ MTP: No evidence of synovitis LABS/IMAGING/OTHER TESTS: 10/2019 CBC WNL, CMP ALT 40 AST 79 CRP 6.1 TSH 4.08, FT4 1.82 09/2018 CBC WNL CMP Cr 1.16 A1c 6.0 08/2017 CCP 9.3 RF<20 HCV AB- CRP 1.3, Vit D 76 SPEP/UPEP WNL no M spike FLOYD- SSA- SSB- HIV- G6PD Normal QFT- Uric acid 3.9 08/2017 XRAY HANDS/KNEES Severe knee and bilateral hand osteoarthritis with a component of erosive osteoarthritis involving the hands. Underlying CPPD arthropathy is also not excluded. 08/2017 XRAY L SPINE Frontal and lateral radiographs of lumbar spine were performed. There are 5 nonrib-bearing lumbar type segments. Mild levocurvature of lumbar spine. The vertebral bodies are normal in height and alignment. Lumbar disc are preserved. Mild endplate sclerosis and anterior osteophytes at the inferior endplate of L1 vertebral body. Bulky anterior projecting bridging osteophytes are present at T10-T12. The paraspinal soft tissues are unremarkable. Intact cortical margins of the sacrum and pelvic bones. Cholecystectomy clips are noted. 08/2017 CT THORAX 1. 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 2. 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 Fatty infiltration of the liver Assessment: ICD-10-CM ICD-9-CM 1. Erosive osteoarthritis M15.4 715.80 2. Sicca, unspecified type M35.00 710.2 3. Chronic gout of foot, unspecified cause, unspecified laterality M1A.0790 274.02 4. CRP elevated R79.82 790.95 5. Long-term use of high-risk medication Z79.899 V58.69 6. Elevated serum creatinine R79.89 790.99 Primary osteoarthritis involving multiple joints (primary encounter diagnosis) Pain in both hands Erosive OA Comment: Likely has OA/mechanical Chronic pain in knees, lower back, shoulders- likely OA No evidence to suggest RA Plan: Check CBC, CMP, Uric acid OTC pain meds History of Sicca, unspecified type Comment: Likely due to medication, could be autoimmune. Well controlled with eye drops Plan: Regular dental and eye visits CKD Elevated Creatinine Plan: Nephrology consult Hypovitaminosis D Comment: H/O low Vit D-on weekly vit Dx 6 months. Plan: Vit D is replete- no need for supplementation S/p [place] 09919 Units Q weekly Plan: C/w Vit D 2000 Units po Qdaily History of ESR raised The ESR(inflammatory marker which can be non specific at times) is flagged as abnormal but normal for age. Gout Comment: Diagnosed 3 yrs ago by PCP for Rt great toe. UA 3.9 On Allopurinol 300 mg po Qd, no recent flares. [id number] Absent Plan: -Advised to avoid red meat , seafood, alcohol, soda, high fructose corn syrup. Says unable to make a full fist and has poor steeping press tender strength. -Purine restricted diet -C/w Allopurinol 300 mg po Qd care home use of high risk medications Comment: On Allopurinol Plan; Counseled regarding possible toxicities of the Allopurinol including Hypersensitivity reactions, effects on blood counts, possible flares of gout with dose changes. Patient agrees to proceed after reviewing side effects, benefits and alternatives to this medication. All questions answered. Orders Placed This Encounter Procedures CBC WITH DIFF COMP. METABOLIC PANEL (58549) URIC ACID CONSULT/REFERRAL NEPHROLOGY Return to clinic in 4-5 months Pt seen with Dr. Saleem Garcia MD, MPH PGY-6 Rheumatology Fellow 2020 8:18 AM Griffin Bonds MD - 2020 10:30 AM Bean [address] Garcia, I interviewed and examined the patient with Dr. Garcia today in the clinic. Laurel Hassan is a 70 year old AA female from [place], a follow-up patient. She has had generalized OA, erosive, affecting multiple joints, without RA, the sicca complex, and chronic gout of her foot, on allopurinol. She has not had any recent gout flares, she says, and this is good. PMH: HTN, diabetes mellitus, history of gout, asthma, generalized OA, the sicca complex, and hyperlipidemia. She is S/P endoscopic carpal tunnel release. She is a never smoker, and does not drink alcohol.She used to be on Plaquenil, stopped some time ago. Medications: allopurinol, 300 mg, diclofenac gel, ASA 81 mg, Lipitor, inhalers, Flexeril, 10 mg PO TID, Lovaza, magnesium, Prilosec, methscopolamine,metformin, calcium carbonate, folic acid, hyoscyamine, Bystolic, Flonase nasal spray, probiotic pearls. Her labs are from OCT 2019: a CBC, TSH, and free T4 are normal; a CMP shows a creatinine of 1.7 mg/dl, and mildly elevated LFTs, maybe from the statin? A serum uric acid was 7.5 mg/dl (is she takingthe allopurinol?). A CRP was elevated at 6.1. An SPEP was normal in 2018. A hep C screen, a RA factor, an anti-CCP, a Quantiferon test, a G6PD screen, and an FLOYD have all been negative or normal. A serum uric acid was 3.9 mg/dl in August 2018. Does she really have gout? An HLA-B58*01 is absent. On x-rays, in 2018, she has had severe knee and hand OA, and CPPD could not be excluded. A Quantiferon test was negative in 2018. PE: she has sizable Heberden's and Hasmukh's nodes, bilaterally, for erosive, familial OA. There isno synovitis, skin rashes, acutely swollen joints, etc. Her lungs are clear. She has erosive, inflammatory OA, familial, and history of gout, now well controlled on allopurinol. Today, we are ordering a CBC, CMP, and a serum uric acid. Therapeutically, we are continuing the allopurinol, 300 mg PO daily. We are asking her to completely avoid any and all NSAIDS. We are referring her to nephrology. The potential medication side effects were discussed, including renal and liver dysfunction, cytopenias, bone marrow suppression, skin rashes, the AHS, an allergic-hypersensitivity reaction, etc. I agree with Dr. Garcia's impressions & recommendations, as written. ICIAN documented in this encounter Plan of Treatment Date Type Specialty Care Team Description 2020 Salvage Clerk Visit Phlebotomy Luis Garcia M D [address] [place] [phone] Vtc-Lab 03/25/2020 Office Visit Nephrology Omi Wick AGNP [address] [place] [address] 77 [phone] 07/09/2020 Office Visit Rheumatology Luis Garcia MD [address] [place] [address] [phone] Name Type Priority Associated Diagnoses Order S chedule CBC WITH DIFF LAB Routine Long-term use of Expected: 2020, high-risk medication Expires : 2021 COMP. METABOLIC PANEL LAB Routine Long-term use of Ex pected: 2020, (85341) high-risk medication Expires : 2021 URIC ACID LAB Routine Chronic gout of foot, Expect ed: 2020, unspecified cause, Expires: 2021 unspecified laterality Health Maintenance Due Date Last Done Comments Depression Screening 1961 DTaP,Tdap,and Td Vaccines (1 - Tdap) 1968 Breast Cancer Screening (MAMMOGRAM) 1989 COLON CANCER SCREENING ANNUAL FIT/FOBT 1999 COLON CANCER SCREENING FIT DNA EVERY 3 YEARS 1999 COLON CANCER SCREENING SIGMOIDOSCOPY EVERY 5 YEARS 1999 COLONOSCOPY 1999 Colorectal Cancer Screening 1999 Zoster Recombinant Vaccine (SHINGRIX) (1 of 2) 1999 Medicare Wellness Visit 2014 Osteoporosis Screening 2014 PNEUMOCOCCAL VACCINES 65+ (1 of 1 - PPSV23) 2014 INFLUENZA VACCINE (#1) 2019 HEPATITIS C (HCV) SCREEN Completed 09/08/2017 documented as of this encounter Implants Implanted Type Area Estate And Trust Tax Principal Device Identifier Shelf Exp iration Model / Date Serial / L ot Knee-10/09/2015 KNEE Knee Implanted: 10/09/2015 (Quantity not on file) documented as of this encounter Results Not on filedocumented in this encounter Visit Diagnoses Diagnosis Erosive osteoarthritis - Primary Osteoarthrosis involving, or with mentio n of more than one site, but not specified as generalized, site unspecified Sicca, unspecified type Chronic gout of foot, unspecified cause, unspecified laterality CRP elevated Elevated C-reactive protein (CRP) Long-term use of high-risk medication Elevated serum creatinine Other nonspecific findings on examinatio n of blood documented in this encounter Insurance Payer Benefit Plan / Subscriber ID Effective Phone Address T ype Group Dates MEDICARE MEDICARE PART A [id number] 2005-Pre [phone] [place] [place] Medicare & B sent [phone] [place] [phone] [facility]LY [facility] [id number] 2015-Pre I ndemnity [employer] sent [phone] (Work) documented as of this encounter
--- OUTSIDE RECORDS SUMMARY | 2020-04-01 12:13 | XMS REPORT | Summary of Care ---
:1950 Author Organization [facility] Address [address] [place] [address] Care Team Providers Name Role Phone Hugo Reid Primary Care Provider Reason for Referral (Routine) Status Reason Specialty Diagnoses / Referred By Referred To Procedures Contact Contact New Request Nephrology Diagnoses Elevated serum creatinine Griffin Monge Procedures CONSULT/REFERRAL NEPHROLOGY MD Hugo [address] [place], [place] [phone] [place] [address] Reason for Visit Reason Comments Follow-up Encounter Details Date Type Department Care Team Description 2020 Office Visit [facility] Luis Garcia MD Erosive osteoarthritis (Primary Dx); Rheumatology-[address], unspecified type; [facility] Chronic gout of foot, unspecified cause, unspecified laterality; Ctr [place], [place] CRP elevated; [address] [facility] [phone] Long-term use of high-risk medication; [facility], Entrance B [phone] [place] [address] Allergies Active Allergy Reactions Severity [...] 20 (Patient (three) Reported) times daily. LOVAZA, [id number] Take by 0 03/05/20 Discontinued ethyl esters, [...] with No / Unsure 2020 10:14 AM INSIDE OUTSIDE SALES REPRESENTATIVE someone who was confirmed or suspected to have Coronavirus / COVID-19? documented as of this encounter Last Filed Vital Signs Vital Sign Reading Time Taken Comments Blood Pressure 132/79 2020 10:35 AM INSIDE OUTSIDE SALES REPRESENTATIVE Pulse 81 2020 10:35 AM INSIDE OUTSIDE SALES REPRESENTATIVE Temperature 36.7 C (98 F) 2020 10:35 AM INSIDE OUTSIDE SALES REPRESENTATIVE Respiratory Rate 16 2020 10:35 AM INSIDE OUTSIDE SALES REPRESENTATIVE Oxygen Saturation 97% 2020 10:35 AM INSIDE OUTSIDE SALES REPRESENTATIVE Inhaled Oxygen Concentration - - Weight 107.2 kg (236 lb 4.8 oz) 2020 10:35 AM INSIDE OUTSIDE SALES REPRESENTATIVE Height 162.6 cm (5' 4") 2020 10:35 AM INSIDE OUTSIDE SALES REPRESENTATIVE Body Mass Index 40.56 2020 10:35 AM INSIDE OUTSIDE SALES REPRESENTATIVE documented in this encounter Patient Instructions Patient InstructionsLuis Garcia MD - 2020 10:30 AM CSTPlease get the labs done (future orders in place) Please continue taking Allopurinol 300 mg po Qdaily Please follow up with Nephrology and PCP Return to clinic in 4-5 months DE OUTSIDE SALES REPRESENTATIVE documented in this encounter Progress Notes Lexy [...] had Ophthalmology exam Apr 17, 2019 non [facility]. Says they dilated her eyes [...] make a full fist and has poor automation/controls manager strength. eeded. Result review: 08/2017: Hgb 12.3, [...] no need for supplementation S/[place] 35401 Units Q weekly Plan: C/w Vit D 2000 Units po Qdaily History of ESR raised The ESR(inflammatory marker which can be non specific at times) is flagged as abnormal but normal for age. Gout Comment: Diagnosed 3 yrs ago by PCP for Rt great toe. UA 3.9 On Allopurinol 300 mg po Qd, no recent flares. [id number] Absent Plan: -Advised to avoid red meat , seafood, alcohol, soda, high fructose corn syrup. Says unable to make a full fist and has poor automation/controls manager strength. -Purine restricted diet -C/w Allopurinol 300 mg po Qd [facility] use of high risk medications Comment: On Allopurinol Plan; Counseled regarding possible toxicities of the Allopurinol including Hypersensitivity reactions, effects on blood counts, possible flares of gout with dose changes. Patient agrees to proceed after reviewing side effects, benefits and alternatives to this medication. All questions answered. Orders Placed This Encounter Procedures CBC WITH DIFF COMP. METABOLIC PANEL (98845) URIC ACID CONSULT/REFERRAL NEPHROLOGY Return to clinic in 4-5 months Pt seen with Dr. Saleem Garcia MD, MPH PGY-6 Rheumatology Fellow 2020 8:18 AM Griffin Bonds MD - 2020 10:30 AM Bean [address] Garcia, I interviewed and examined the patient with Dr. Garcia today in the clinic. Laurel Hassan is a 70 year old AA female from [place], a follow-up patient. She has had generalized [...] Dr. Garcia's impressions & recommendations, as written. DE OUTSIDE SALES REPRESENTATIVE documented in this encounter Plan of Treatment Date Type Specialty Care Team Description 2020 Ambulatory Analyst Visit Phlebotomy Luis Garcia M D [address] [place] [phone] Vtc-Lab 03/25/2020 Office Visit Nephrology Omi Wick AGNP [address] [place] [address] 77 [phone] 07/09/2020 Office Visit Rheumatology Luis Garcia MD [address] [place] [phone] Name Type Priority Associated Diagnoses Order S chedule CBC WITH DIFF LAB Routine Long-term use of Expected: 2020, high-risk medication Expires : 2021 COMP. METABOLIC PANEL LAB Routine Long-term use of Ex pected: 2020, (84250) high-risk medication Expires : 2021 URIC ACID [...] of this encounter Implants Implanted Type Area Consignee Device Identifier Shelf Exp iration Model / [...] ype Group Dates MEDICARE MEDICARE PART A [id number] 2005-Pre [phone] [place] Medicare & B sent [phone] [place] [id number] [facility] [id number] 2015-Pre I ndemnity [employer] sent [phone] (Work) documented as of this encounter
--- OUTSIDE RECORDS SUMMARY | 2020-04-01 12:14 | XMS REPORT | Summary of Care ---
:1950 Author Organization [facility] - [facility] Address [address] [place] [address] Care Team Providers Name Role Phone Hugo Reid Primary Care Provider Encounter Details Date Type Department Care Team Description 03/25/2020 Orders Only [facility] Doctor Unassigned, No [address] [facility] Name [place] [phone] [place] [id number] Allergies Active Allergy Reactions Severity Noted Date Comments Codeine Rash 03/08/2017 documented as of this encounter (statuses as of 03/25/2020) Medications Medication Sig Dispensed Refills Start Date End Date Status metFORMIN 850 mg tablet Take 850 mg by 0 Active mouth 2 (two) times daily with meals. NEBIVOLOL HCL (BYSTOLIC Take by mouth. 0 Active ORAL) omeprazole 20 mg Take 20 mg by 0 Active capsule mouth daily. atorvastatin 20 mg Take 10 mg by 0 Active tablet mouth at bedtime. aspirin (ASPIRIN LOW Take 81 mg by 0 Active DOSE) 81 mg EC tablet mouth daily. calcium carbonate-mag Take by mouth. 0 Active hydroxid 1,000-200 mg Chew budesonide-formoterol Inhale 2 Puffs 2 0 Active (SYMBICORT) 80-4.5 (two) times mcg/actuation inhaler daily. MAGNESIUM ORAL Take 500 mg by 0 Active mouth. FLUTICASONE PROPIONATE, 0 Active BULK, MISC Diclofenac Sodium 1 % Apply 1gram to 100 g 2 06/20/2019 Active gelIndications: Erosive affected area osteoarthritis twice daily lisinopriL 2.5 mg 0 11/06/2019 A ctive tablet memantine 10 mg tablet 0 11/03/2019 Active dulaglutide (TRULICITY) inject 1.5 mg 0 Active 1.5 mg/0.5 mL PnIj under the skin weekly. cyclosporine (RESTASIS Place in each 0 Active OPHTHALMIC) eye 2 (two) times daily. icosapent ethyL Take by mouth 0 Active (VASCEPA) 1 gram daily. capsule allopurinoL 300 mg Take 1 tablet by 90 tablet 1 2020 Active tabletIndications: mouth daily. Chronic gout of foot, unspecified cause, unspecified laterality documented as of this encounter (statuses as of 03/25/2020) Active Problems Problem Noted Date Stroke 10/08/2018 Long-term use of Plaquenil 10/05/2017 ESR raised 10/05/2017 Primary osteoarthritis involving multiple joints 09/07 Sicca 09/07/2017 Immunization counseling 09/07/2017 Pain in both hands 09/07/2017 Hypovitaminosis D 09/07/2017 Chronic gout of foot 09/07/2017 documented as of this encounter (statuses as of 03/25/2020) Social History Tobacco Use Types Packs/Day Years Used Date Never Smoker Smokeless Tobacco: Never Used Alcohol Use Drinks/Week oz/Week Comments No Sex Assigned at Date Recorded Not on file COVID-19 Exposure Response Date Recorded In the last month, have you been in contact with No / Unsure 2020 10:14 AM LABORATORY ANIMAL CARE VETERINARIAN someone who was confirmed or suspected to have Coronavirus / COVID-19? documented as of this encounter Last Filed Vital Signs Not on filedocumented in this encounter Plan of Treatment Date Type Specialty Care Team Description 03/25/2020 Office Visit Nephrology Omi Wick AGNP [address] [place] [address] 77 555 07/09/2020 Office Visit Rheumatology Luis Garcia MD [address] [place] [address] [phone] Health Maintenance Due Date Last Done Comments [...] of this encounter Implants Implanted Type Area Road Crew Member Device Identifier Shelf Exp iration Model / Date Serial / L ot Knee-10/09/2015 KNEE Knee Implanted: 10/09/2015 (Quantity not on file) documented as of this encounter Procedures Procedure Name Priority Date/Time Associated Diagnosis Comme nts ASSIGNMENT OF BENEFITS Routine 03/25/2020 10:13 AM LABORATORY ANIMAL CARE VETERINARIAN documented in this encounter Results Not on filedocumented in this encounter Insurance Payer Benefit Plan / Subscriber ID Effective Phone Address T e Group Dates MEDICARE MEDICARE PART A [id number] 2005-Pre [phone] [address] [place] Medicare & B sent [phone] [place] [address] CONTINENTAL CONTINENTAL [id number] 2015-Pre I ndemnity LIFE LIFE sent documented as of this encounter
--- OUTSIDE RECORDS SUMMARY | 2020-04-01 12:14 | XMS REPORT | Summary of Care ---
:1950 Author Organization [facility] - [facility] Address [address] [place] [address] Care Team Providers Name Role Phone Hugo Reid Primary Care Provider Reason for Visit Reason Comments Pre-Visit Planning Encounter Details Date Type Department Care Team Description 03/18/2020 Telephone [facility] Paty Wick, Pre-Visit Planning Nephrology[facility] [address] [address] Entrance B [phone] [place] [address] Allergies Active Allergy Reactions Severity Noted Date Comments Codeine Rash 03/08/2017 documented as of this encounter (statuses as of 03/18/2020) Medications Medication Sig Dispensed Refills Start Date [...] as of this encounter (statuses as of 03/18/2020) Active Problems Problem Noted Date Stroke 10/08/2018 Long-term use of Plaquenil 10/05/2017 ESR raised 10/05/2017 Primary osteoarthritis involving multiple joints 09/07 Sicca 09/07/2017 Immunization counseling 09/07/2017 Pain in both hands 09/07/2017 Hypovitaminosis D 09/07/2017 Chronic gout of foot 09/07/2017 documented as of this encounter (statuses as of 03/18/2020) Social History Tobacco Use Types Packs/Day Years Used Date Never Smoker Smokeless Tobacco: Never Used Alcohol Use Drinks/Week oz/Week Comments No Sex Assigned at Date Recorded Not on file COVID-19 Exposure Response Date Recorded In the last month, have you been in contact with No / Unsure 2020 10:14 AM GRAPHIC EDITOR someone who was confirmed or suspected to have Coronavirus / COVID-19? documented as of this encounter Last Filed Vital Signs Not on filedocumented in this encounter Miscellaneous Notes Telephone Encounter - Day Naidu RN - 03/18/2020 2:41 PM CSTChart reviewed. Labs ordered for upcoming appointment with Nephrology per guidelines. My chart message and/or letter sent as an appointment reminder. HIC EDITOR documented in this encounter Plan of Treatment Date Type Specialty Care Team Description 03/25/2020 Office Visit Nephrology Omi Wick, DEBBIE [address] [place] [address] 555 [phone] 07/09/2020 Office Visit Rheumatology Luis Garcia MD [address] [place] [address] [phone] Name Type Priority Associated Diagnoses Order S chedule BASIC METABOLIC PANEL LAB Routine Elevated serum 1 Oc currences starting (NA, K, CL, CO2, GLUCOSE, creatinine until BUN, CREATININE, CA) 021 CBC WITHOUT DIFF LAB Routine Elevated serum 1 Occurre nces starting creatinine 03/18/2020 unti l 06/16/2020 INTACT PTH CALCIUM GROUP LAB Routine Elevated serum 1 Occurrences starting creatinine 03/18/2020 unti l 06/16/2020 MAGNESIUM LAB Routine Elevated serum 1 Occurrences starting creatinine 03/18/2020 unti l 06/16/2020 MICROALBUMIN URINE LAB Routine Elevated serum Expecte d: 03/18/2020, creatinine Expires: 2020 PROTEIN CREAT RATIO URINE LAB Routine Elevated serum 1 Occurrences starting RANDOM creatinine 03/18/2020 unti l 06/16/2020 PHOSPHORUS LAB Routine Elevated serum 1 Occurrences starting creatinine 03/18/2020 unti l 06/16/2020 URINALYSIS LAB Routine Elevated serum 1 Occurrences starting creatinine 03/18/2020 unti l 06/16/2020 Health Maintenance Due Date Last Done Comments [...] of this encounter Implants Implanted Type Area Electric Organ Checker Device Identifier Shelf Exp iration Model / Date Serial / L ot Knee-10/09/2015 KNEE Knee Implanted: 10/09/2015 (Quantity not on file) documented as of this encounter Results Not on filedocumented in this encounter Visit Diagnoses Diagnosis Elevated serum creatinine - Primary Other nonspecific findings on examinatio n of blood documented in this encounter Insurance Payer Benefit Plan / Subscriber ID Effective Phone Address T e Group Dates MEDICARE MEDICARE PART A [id number] 2005-Pre [phone] [address] [place] Medicare & B sent [phone] [place] [phone] [facility] [id number] 2015-Pre I ndemnity LIFE LIFE sent documented as of this encounter
--- OUTSIDE RECORDS SUMMARY | 2020-04-01 12:14 | XMS REPORT | Summary of Care ---
:1950 Author Organization [facility] - [facility] Address [address] [place] [address] Care Team Providers Name Role Phone Hugo Reid Primary Care Provider Encounter Details Date Type Department Care Team Description 03/25/2020 Letter (Out) [facility] Paty Wick, Nephrology-[facility] AGNP [facility]ty Ctr [address] [place] [address] Entrance B [phone] [place], [place] [phone] [phone] Allergies Active Allergy Reactions Severity Noted Date [...] been in contact with No / Unsure 03/25/2020 10:15 AM PAPER PATTERN FOLDER someone who was confirmed or suspected to have Coronavirus / COVID-19? documented as of this encounter Last Filed Vital Signs Not on filedocumented in this encounter Plan of Treatment Date Type Specialty Care Team Description 03/25/2020 Biomedical Service Engineer Visit Phlebotomy Alyson Wick on, DEBBIE [address] [place] [phone] Arrived V[facility]-Lab 04/01/2020 Appointment Radiology Paty Wick AGNP [address] [place] [address] 77 555 06/20/2020 Biomedical Service Engineer Visit Clinical Medical 1, [facility] Lab Laboratory 06/25/2020 Office Visit Nephrology Paty Wick AGNP [address] [place], [place] [address] 07/09/2020 Office Visit Rheumatology Luis Garcia MD [address] [place] [phone] Health Maintenance Due Date Last Done Comments Depression Screening 1961 Breast Cancer Screening 1989 (MAMMOGRAM) COLON CANCER SCREENING ANNUAL 1999 FIT/FOBT COLON CANCER SCREENING FIT DNA 1999 EVERY 3 YEARS COLON CANCER SCREENING 1999 SIGMOIDOSCOPY EVERY 5 YEARS COLONOSCOPY 1999 Colorectal Cancer Screening 1999 Medicare Wellness Visit 2014 Osteoporosis Screening 2014 PNEUMOCOCCAL VACCINES 65+ (1 of 1 2014 - PPSV23) INFLUENZA VACCINE (#1) 2020 Postponed from 11/28/2019 (Alternative Gabriel delines) DTaP,Tdap,and Td Vaccines (1 - 03/25/2021 P ostponed from 1968 Tdap) (Insurance / Fin ancial) Zoster Recombinant Vaccine 03/25/2021 Postp oned from 1999 (SHINGRIX) (1 of 2) (Insurance / Financial) HEPATITIS C (HCV) SCREEN Completed 09/08/2017 documented as of this encounter Implants Implanted Type Area Ribbon Weaver Device Identifier Shelf Exp iration Model / Date Serial / L ot Knee-10/09/2015 KNEE Knee Implanted: 10/09/2015 (Quantity not on file) documented as of this encounter Results Not on filedocumented in this encounter Insurance Payer Benefit Plan / Subscriber ID Effective Phone Address T ype Group Dates MEDICARE MEDICARE PART A [id number] 2005-Pre [phone] [address] [place] Medicare & B sent [phone] [place] [address] [facility] [id number] 2015-Pre I ndemnity [employer] LIFE sent documented as of this encounter
--- OUTSIDE RECORDS SUMMARY | 2020-04-01 12:14 | XMS REPORT | Summary of Care ---
:1950 Author Organization [facility] - [facility] Address [address] [place] [address] Care Team Providers Name Role Phone Hugo Reid Primary Care Provider Reason for Visit Reason Comments LAB WORK Encounter Details Date Type Department Care Team Description 2020 Flap Presser Visit LAB SERVICES AT [facility] Shaun Garcia MD [address] [place] [phone] Erosive osteoarthritis; MULTISPECIALTY [facility] Vitamin D deficiency ; [facility] Long-term use of high-risk medication; [facility] Chronic gout of foot, unspec ified cause, [place] [phone] Allergies Active Allergy Reactions Severity Noted Date Comments Codeine Rash 03/08/2017 documented as of this encounter (statuses as of 2020) Medications Medication Sig Dispensed Refills Start Date [...] with No / Unsure 2020 10:14 AM SLUDGE CONTROL ATTENDANT someone who was confirmed or suspected to have Coronavirus / COVID-19? documented as of this encounter Last Filed Vital Signs Not on filedocumented in this encounter Plan of Treatment Date Type Specialty Care Team Description 03/25/2020 Office Visit Nephrology Omi Wick AGNP [address] [place] [address] 555 07/09/2020 Office Visit Rheumatology Luis Garcia MD [address] [place] [address] [phone] Name Type Priority Associated Diagnoses Date/Ti me VITAMIN D, 25-OH LAB Routine Erosive osteoar thritis 2020 11:50 AM SLUDGE CONTROL ATTENDANT Vitamin D deficiency Health Maintenance Due Date Last Done Comments [...] of this encounter Implants Implanted Type Area Wire Sawyer Device Identifier Shelf Exp iration Model / Date Serial / L ot Knee-10/09/2015 KNEE Knee Implanted: 10/09/2015 (Quantity not on file) documented as of this encounter Procedures Procedure Name Priority Date/Time Associated Diagnosis Comme nts CBC WITH DIFF Routine 2020 11:50 AM Long-term use of Res ults for this SLUDGE CONTROL ATTENDANT high-risk medication procedu re are in the results section. COMP. METABOLIC Routine 2020 11:50 AM Long-term use of R esults for this PANEL (55075) SLUDGE CONTROL ATTENDANT high-risk medication proced ure are in the results section. URIC ACID Routine 2020 11:50 AM Chronic gout of Resul ts for this SLUDGE CONTROL ATTENDANT foot, unspecified procedure are in cause, unspecified the resul ts laterality section. documented in this encounter Results URIC ACID (2020 11:50 AM SLUDGE CONTROL ATTENDANT) Pathologist Sig nature URIC ACID 6.3 (H) 2.9 - 6.0 mg/dL [facility] Specimen Blood - ARM, LEFT Performing Organization Address City/State/Zipcode Phone Number [facility] CLIA: [id number] [place] [address] SERVICES-[facility] [address] COMP. METABOLIC PANEL (52647) (2020 11:50 AM SLUDGE CONTROL ATTENDANT) NA 141 135 - 145 [facility] mmol/L [facility] K 4.5 3.5 - 5.0 [facility] mmol/L [facility] CL 107 98 - 108 mmol/L [facility] CO2 TOTAL 26 23 - 31 mmol/L [facility] AGAP 8 2 - 16 [facility] BUN 13 7 - 23 mg/dL [facility] GLUCOSE 101 70 - 110 mg/dL [facility] CREATININE 1.07 (H) 0.50 - 1.04 [facility] mg/dL [facility] TOTAL BILI 0.5 0.1 - 1.1 mg/dL [facility] CALCIUM 9.9 8.6 - 10.6 [facility] mg/dL [facility] T PROTEIN 6.7 6.3 - 8.2 g/dL [facility] ALBUMIN 3.9 3.5 - 5.0 g/dL [facility] ALK PHOS 128 (H) 34 - 122 U/L [facility] ALTv 16 5 - 35 U/L [facility] AST(SGOT) 30 13 - 40 U/L [facility] eGFR Calculation 50.6 mL/min/1.73m2 [facility] (Non- [facility] Algerian) [place] eGFR Calculation 61.3 mL/min/1.73m2 [facility] () [facility] Specimen Blood - ARM, LEFT Narrative Performed At Association of Glomerular Filtration Rate [facility]ORAT [facility] (GFR) and Staging of Kidney Disease* [place] + + --+ + | GFR (mL/min/1.73 m2) | With Kidney Damage | Without Kidney Damage + + --+ + | >90 | Stage one | Normal + + --+ + | 60-89 | Stage two | Decreased GFR + + --+ + | 30-59 | Stage three | Stage three + + --+ + | 15-29 | Stage four | Stage four + + --+ + | <15 (or dialysis) | Stage five | Stage five + + --+ + *Each stage assumes the associated GFR level has been in effect for at least three months. Stages 1 to 5, with or without kidney disease, indicate chronic kidney disease. Notes: Determination of stages one and two (with eGFR >59mL/min/1.73 m2) requires estimation of kidney damage for at least three months as defined by structural or functional abnormalities of the kidney, manifested by either: Pathological abnormalities or Markers of kidney damage (including abnormalities in the composition of the blood or urine or abnormalities in imaging tests). Performing Organization Address City/State/Zipcode Phone Number [facility] CLIA: [id number] [place] [address] [facility] [address] [place] CBC WITH DIFF (2020 11:50 AM SLUDGE CONTROL ATTENDANT) [facility] WBC 9.13 4.30 - 11.10 [facility] 10*3/L [facility] RBC 4.61 3.93 - 5.25 [facility] 10*6/L [facility] HGB 12.7 11.6 - 15.0 [facility] g/dL [facility] HCT 41.1 35.7 - 45.2 % [facility] MCV 89.2 80.6 - 95.5 fL [facility] MCH 27.5 25.9 - 32.8 pg [facility] MCHC 30.9 (L) 31.6 - 35.1 [facility] g/dL [facility] RDW-SD 52.3 (H) 39.0 - 49.9 fL [facility] RDW-CV 16.0 (H) 12.0 - 15.5 % [facility] PLT 335 166 - 358 [facility] 10*3/L [facility] MPV 10.1 9.5 - 12.9 fL [facility] NRBC/100 WBC 0.0 0.0 - 10.0 /100 [facility] WBCs [facility] NRBC x10^3 <0.01 10*3/L [facility] GRAN MAT (NEUT) % 52.0 % [facility] IMM GRAN % 0.40 % [facility] LYMPH % 31.3 % [facility] MONO % 11.9 % [facility] EOS % 3.4 % [facility] BASO % 1.0 % [facility] GRAN MAT x10^3(ANC) 4.74 1.88 - 7.09 [facility] 10*3/uL [facility] IMM GRAN x10^3 0.04 0.00 - 0.06 [facility] 10*3/uL [facility] LYMPH x10^3 2.86 1.32 - 3.29 [facility] 10*3/uL [facility] MONO x10^3 1.09 (H) 0.33 - 0.92 [facility] 10*3/uL [facility] EOS x10^3 0.31 0.03 - 0.39 [facility] 10*3/uL [facility] BASO x10^3 0.09 (H) 0.01 - 0.07 [facility] 10*3/uL [facility] Specimen Blood - ARM, LEFT Performing Organization Address City/State/Zipcode Phone Number [facility] CLIA: [id number] [place] [address] documented in this encounter Visit Diagnoses Diagnosis Erosive osteoarthritis Osteoarthrosis involving, or with mentio n of more than one site, but not specified as generalized, site unspecified Vitamin D deficiency Unspecified vitamin D deficiency Long-term use of high-risk medication Chronic gout of foot, unspecified cause, unspecified laterality documented in this encounter Insurance Payer Benefit Plan / Subscriber ID Effective Phone Address T ype Group Dates MEDICARE MEDICARE PART A [id number] 2005-Pre [phone] [place] Medicare & B sent [phone] [place] [phone] [facility] [id number] 2015-Pre I ndemnity [employer] sent [phone] [id number] (Work) documented as of this encounter"
--- OUTSIDE RECORDS SUMMARY | 2020-04-01 12:15 | XMS REPORT | Summary of Care ---
:1950 Author Organization [facility] - Health Address [address] [place] [address] Care Team Providers Name Role Phone Hugo Reid Primary Care Provider Reason for Visit Reason Comments LAB WORK Encounter Details Date Type Department Care Team Description 03/25/2020 Sales Process Manager Visit LAB SERVICES AT [facility] Paty Wick AGNP [address] [place] [address] Elevated serum MULTISPECIALTY [employer] R Vt-Lab creatinine [address] [place] [address] Allergies Active Allergy Reactions Severity [...] with No / Unsure 03/25/2020 10:15 AM HOSTESS HOST someone who was confirmed or suspected to have Coronavirus / COVID-19? documented as of this encounter Last Filed Vital Signs Not on filedocumented in this encounter Nursing Notes Skylar Ward S - 03/25/2020 11:30 AM CST Venipuncture collection performed by clean technique on the left anticubitus. Total of 1 attempts were made. Slight pressure and a bandage/dressing were applied to the site(s). The patient experienced no complications. The following specimens were processed according to instructions and sent to [facility] laboratories per lab order on 03/25/20: LT BLUE SST RED LAV PPT DK GREEN (LiHep) DK GREEN (SodH) WORKMAN DK BLUE (K2) DK BLUE (S) ACD Blood Culture NIPT/NTD Patient has been identified by and name and was provided with cup, antiseptic towelette, and clean catch instructions. 3 urine specimen(s) sent. Unpreserved Urine Culture Aptima tube Other urine documented in this encounter Plan of Treatment Date Type Specialty Care Team Description 04/01/2020 Appointment Radiology Paty Wick AGNP [address] [place] [address] 77 555 06/20/2020 Sales Process Manager Visit Clinical Medical 1, [facility] Lab Laboratory 06/25/2020 Office Visit Nephrology Paty Wick AGNP [address] [place] [address] 77 555 07/09/2020 Office Visit Rheumatology Luis Garcia MD [address] [place] [phone] Name Type Priority Associated Diagnoses Date/Ti me BASIC METABOLIC PANEL (NA, LAB Routine Elevated serum 03/25/2020 11:13 AM K, CL, CO2, GLUCOSE, BUN, creatinine CS T CREATININE, CA) CBC WITHOUT DIFF LAB Routine Elevated serum 0 11:13 AM creatinine HOSTESS HOST INTACT PTH [employer]CI[employer] LAB Routine Elevated serum 1 05/26/2019 11:13 AM creatinine HOSTESS HOST MAGNESIUM LAB Routine Elevated serum 03/25/2020 11 :13 AM creatinine HOSTESS HOST PHOSPHORUS LAB Routine Elevated serum 03/25/2020 11 :13 AM creatinine HOSTESS HOST MICROALBUMIN URINE LAB Routine Elevated serum 020 11:18 AM creatinine HOSTESS HOST PROTEIN CREAT RATIO URINE LAB Routine Elevated serum 03/25/2020 11:18 AM RANDOM creatinine HOSTESS HOST URINALYSIS LAB Routine Elevated serum 03/25/2020 11 :18 AM creatinine HOSTESS HOST Health Maintenance Due Date Last Done Comments [...] of this encounter Implants Implanted Type Area Store Sales Consultant Device Identifier Shelf Exp iration Model / Date Serial / L ot Knee-10/09/2015 KNEE Knee Implanted: 10/09/2015 (Quantity not on file) documented as of this encounter Results Not on filedocumented in this encounter Visit Diagnoses Diagnosis Elevated serum creatinine Other nonspecific findings on examinatio n of blood documented in this encounter Insurance Payer Benefit Plan / Subscriber ID Effective Phone Address T ype Group Dates MEDICARE MEDICARE PART A [id number] 2005-Pre [phone] [address] [place] Medicare & B sent [phone] BRENDA MARENGOBK [address] [facility] [id number] 2015-Pre I ndemnity [employer] LIFE sent [phone] (Work) documented as of this encounter
--- OUTSIDE RECORDS SUMMARY | 2020-04-01 12:15 | XMS REPORT | Summary of Care ---
:1950 Author Organization [facility] - [facility] Address [address] [place], [place] [address] Care Team Providers Name Role Phone Hugo Reid Primary Care Provider Reason for Referral Radiology Services (Routine) Status Reason Specialty Diagnoses / Referred By Referred To Procedures Contact Contact New Request Diagnostic Diagnoses Elevated serum creatinine [place], Radiology Procedures US RETROPERITONEAL LIMITED DEBBIE Newman [address] [place] [phone] Reason for Visit Reason Comments New Patient (Routine) Status Reason Specialty Diagnoses / Referred By Referred To Procedures Contact Contact New Request Nephrology Diagnoses Elevated serum creatinine Griffin Monge Procedures CONSULT/REFERRAL NEPHROLOGY MD Hugo [address] [place], [place] [id number] [place] [address] Encounter Details Date Type Department Care Team Description 03/25/2020 Office Visit [facility] Paty Wick, Elevated serum creatinine (Primary Dx); Nephrology-[facility] Hypertension, unspecified type; [facility] [address] [place] [address] Dyspnea on exertion [address] [place] [address] South, Entrance B [phone] [place] [address] Allergies Active Allergy Reactions Severity [...] with No / Unsure 03/25/2020 10:15 AM TIN POURER someone who was confirmed or suspected to have Coronavirus / COVID-19? documented as of this encounter Last Filed Vital Signs Vital Sign Reading Time Taken Comments Blood Pressure 138/86 03/25/2020 10:26 AM TIN POURER Pulse 73 03/25/2020 10:26 AM TIN POURER Temperature 35.8 C (96.4 F) 03/25/2020 10:25 AM TIN POURER Respiratory Rate - - Oxygen Saturation 93% 03/25/2020 10:25 AM TIN POURER Inhaled Oxygen Concentration - - Weight 108.6 kg (239 lb 6.4 oz) 03/25/2020 10:25 AM TIN POURER Height 162.6 cm (5' 4") 03/25/2020 10:25 AM TIN POURER Body Mass Index 41.09 03/25/2020 10:25 AM TIN POURER documented in this encounter Progress Notes Paty Wick AGNP - 03/25/2020 10:30 AM CST DATE OF SERVICE: 03/25/2020 CHIEF COMPLAINT: Establish Care for Elevated Serum Creatinine HISTORY OF PRESENT ILLNESS: Laurel Hassan is a 70 year old female who has a past medical history of DM (diabetes mellitus), HTN (hypertension), and Hyperlipidemia. that presents to establish carefor elevated serum creatinine. Today, patient reports feeling well with no current complaints. Endorses chronic HINOJOSA that has slightly worsened (currently followed by cardiology at OSH.) Denies flank pain, dysuria, hematuria, slow stream, feeling of not emptying bladder, foul-smelling urine, and/orfoamy/frothy urine. Denies chest pain, palpitations, dizziness, syncope, presyncope, or peripheral edema. Has hx of infrequent NSAID use (Aleve PRN headache). No nephrolithiasis or recently UTI's. Has hx of 2-3 UTI's per year in past but none recently. No recent home BP readings. Has forgotten Trulicity frequently. Only takes metformin 850mg Qhs. Is on Bystolic 10mg daily and lisinopril 2.5mgdaily. PAST MEDICAL HISTORY: Past Medical History: Diagnosis Date DM (diabetes mellitus) HTN (hypertension) Hyperlipidemia PAST SURGICAL HISTORY: Past Surgical History: Procedure Laterality Date ENDOSCOPIC CARPAL TUNNEL RELEASE HYSTERECTOMY JOINT SURGERY Right FAMILY HISTORY: Family History Problem Relation Age of Onset Heart Mother Heart Father Arthritis Father SOCIAL HISTORY: Social History Socioeconomic History Marital status: Spouse name: Not on file Number of children: Not on file Years of education: Not on file Highest education level: Not on file Occupational History Occupation: retired Social Needs Financial resource strain: Not on file Food insecurity Worry: Not on file Inability: Not on file Transportation needs Medical: Not on file Non-medical: Not on file Tobacco Use Smoking status: Never Smoker Smokeless tobacco: Never Used Substance and Sexual Activity Alcohol use: No Drug use: No Sexual activity: Never control/protection: Surgical Lifestyle Physical activity Days per week: Not on file Minutes per session: Not on file Stress: Not on file Relationships Social connections Talks on phone: Not on file Gets together: Not on file Attends samaritan service: Not on file Active member of club or organization: Not on file Attends meetings of clubs or organizations: Not on file Relationship status: Not on file Intimate partner violence Fear of current or ex partner: Not on file Emotionally abused: Not on file Physically abused: Not on file Forced sexual activity: Not on file Other Topics Concern Not on file Social History Narrative She lives with her niece. She's retired. She's active. ALLERGIES: Allergies Allergen Reactions Codeine Rash MEDICATIONS: Current Outpatient Medications on File Prior to Visit Medication Sig Dispense Refill allopurinoL 300 mg tablet Take 1 tablet by mouth daily. 90 tablet 1 cyclosporine (RESTASIS OPHTHALMIC) Place in each eye 2 (two) times daily. dulaglutide (TRULICITY) 1.5 mg/0.5 mL PnIj inject 1.5 mg under the skin weekly. icosapent ethyL (VASCEPA) 1 gram capsule Take by mouth daily. lisinopriL 2.5 mg tablet memantine 10 mg tablet Diclofenac Sodium 1 % gel Apply 1gram to affected area twice daily 100 g 2 aspirin (ASPIRIN LOW DOSE) 81 mg EC tablet Take 81 mg by mouth daily. atorvastatin 20 mg tablet Take 10 mg by mouth at bedtime. budesonide-formoterol (SYMBICORT) 80-4.5 mcg/actuation inhaler Inhale 2 Puffs 2 (two) times daily. calcium carbonate-mag hydroxid 1,000-200 mg Chew Take by mouth. FLUTICASONE PROPIONATE, BULK, MISC MAGNESIUM ORAL Take 500 mg by mouth. omeprazole 20 mg capsule Take 20 mg by mouth daily. metFORMIN 850 mg tablet Take 850 mg by mouth 2 (two) times daily with meals. NEBIVOLOL HCL (BYSTOLIC ORAL) Take by mouth. No current facility-administered medications on file prior to visit. REVIEW OF SYSTEMS: CONSTITUTIONAL: Patient feels relatively well. No fever, chills, and/or malaise. SKIN: Patient denies skin changes HEENT: Patient denies vision issues. NECK: Patient denies lumps and/or masses PULMONARY: Chronic HINOJOSA that has slightly worsened (followed by media associate - OSH). Patient denies cough, wheezing, orthopnea, and/or paroxysmal nocturnal dyspnea. CARDIOVASCULAR: Patient denies chest pain and/or palpitations GENITOURINARY: Patient denies flank pain, dysuria, foul-smelling urine, hematuria, foamy urine, hesitancy, decreased urinary stream, polyuria, and/or nocturia. MUSCULOSKELETAL: No recent episode of gout. PERIPHERAL VASCULAR: Patient denies swelling.. NEUROLOGICAL: Patient denies syncope, dizziness/lightheadedness PHYSICAL EXAMINATION: Vitals: 03/25/20 1025 03/25/20 1026 BP: 130/78 138/86 Pulse: 73 73 Temp: 35.8 C (96.4 F) TempSrc: Skin SpO2: 93% Weight: 239 lb 6.4 oz (108.6 kg) Height: 5' 4" (1.626 m) GENERAL: Patient looks well-developed, well-nourished, in no apparent distress. Patient is awake, alert, oriented, and cooperative. SKIN: No significant skin lesions, and/or color changes. HEENT: Normocephalic, atraumatic, pink conjunctivae NECK: Supple, full range of motion CHEST: Clear to auscultation and percussion. HEART: Normal S1, S2, without murmurs, rubs, and/or gallops. EXTREMITIES: No clubbing, cyanosis, and/or edema. NEURO: CN II-XII grossly intact,non-focal exam without apparent deficit. LABORATORY DATA: Machine Clothing Man Visit on 2020 Component Date Value VIT D 25OH 2020 60 WBC 2020 9.13 RBC 2020 4.61 HGB 2020 12.7 HCT 2020 41.1 MCV 2020 89.2 MCH 2020 27.5 MCHC 2020 30.9* RDW-SD 2020 52.3* RDW-CV 2020 16.0* PLT 2020 335 MPV 2020 10.1 NRBC/100 WBC 2020 0.0 NRBC x10^3 2020 <0.01 GRAN MAT (NEUT) % 2020 52.0 IMM GRAN % 2020 0.40 LYMPH % 2020 31.3 MONO % 2020 11.9 EOS % 2020 3.4 BASO % 2020 1.0 GRAN MAT x10^3(ANC) 2020 4.74 IMM GRAN x10^3 2020 0.04 LYMPH x10^3 2020 2.86 MONO x10^3 2020 1.09* EOS x10^3 2020 0.31 BASO x10^3 2020 0.09* NA 2020 141 K 2020 4.5 CL 2020 107 CO2 TOTAL 2020 26 AGAP 2020 8 BUN 2020 13 GLUCOSE 2020 101 CREATININE 2020 1.07* TOTAL BILI 2020 0.5 CALCIUM 2020 9.9 T PROTEIN 2020 6.7 ALBUMIN 2020 3.9 ALK PHOS 2020 128* ALTv 2020 16 AST(SGOT) 2020 30 eGFR Calculation (Non-Af* 2020 50.6 eGFR Calculation (Angela* 2020 61.3 URIC ACID 2020 6.3* ASSESSMENT/PLAN: Elevated Serum Creatinine Comment: In October 2019, patient's serum creatinine reached a peak of 1.70 from baseline of 1.00-1.10. Creatinine has since recovered to baseline. At the clinic visit in October, her BP was 102/57. This may have contributed to elevated creatinine. Denies any known NSAID use at that time. Plan: US RETROPERITONEAL LIMITED. Repeat full renal labs today including urine studies as there isno UA since 2004. Hypertension Comment: Hx of HTN. Low bp noted 11/21/2019. Currently asymptomatic. No home BP readings. Plan: Continue Bystolic 10mg daily for now. Continue lisinopril 2.5mg daily. Will continue to monitor blood pressure at home BID. Take AM readings prior to medications and PM readings around dinnertime. Call office with systolic readings > 150 or < 100 or if patient becomes symptomatic such as dizziness when standing. Discussed proper blood pressure monitoring including arm at heart level and rested. Will have RN call in 1 week to obtain home BP readings for consideration of reducing doses. Dyspnea Comment: Has chronic dyspnea that has slightly worsened. Weight is trending up. Advised she contact cardiology regarding this for consideration of repeating ECHO and stress test. Patient agreed. Plan: Continue to follow cardiology. Go to ED if condition worsens. DM Type 2 Comment: Serum glucose 101 - appears well-controlled. No updated A1c. Discussed link of DM Type 2and CKD. Takes Trulicity infrequently. Ok to continue metformin as prescribed as eGFR is > 30. Plan: Continue to follow diabetes provider. FOLLOW-UP: 3 MONTHS Paty Wick, DNP, AUDITOR SUPERVISOR, AGPCNP- Nurse Practitioner Division of Nephrology & Hypertension [address] [facility] O [phone] F [phone] [email or web address] POURER Kayleigh Jovel MA - 03/25/2020 10:30 AM CST Laurel Hassan is a 70 year old female seen for an office visit Appearance: healthy,alert,cooperative. Fall Risk assessment and Mental Health assessment reviewed with the patient. Medications, Pharmacy, and Allergies reviewed with the patient. Patient education over diet was given. Health Maintenance needs were addressed during the visit. Provider informed of health maintenance needs. Health Maintenance Summary Status Date Depression Screening Overdue 1961 DTaP,Tdap,and Td Vaccines Overdue 1968 Breast Cancer Screening (MAMMOGRAM) Overdue 1989 Zoster Recombinant Vaccine (SHINGRIX) Overdue 1999 Colorectal Cancer Screening Overdue 1999 PNEUMOCOCCAL VACCINES 65+ Overdue 2014 Medicare Wellness Visit Overdue 2014 Osteoporosis Screening Overdue 2014 INFLUENZA VACCINE Overdue 11/28/2019 HEPATITIS C (HCV) SCREEN This plan is no longer active. Done 09/08/2017 HCV ANTIBODY HCV Ab HCV Semi-Quantitative Patient Active Problem List Diagnosis Primary osteoarthritis involving multiple joints [place] Immunization counseling Pain in both hands Hypovitaminosis D Chronic gout of foot Long-term use of Plaquenil ESR raised Stroke There is no immunization history on file for this patient. POURER documented in this encounter Plan of Treatment Date Type Specialty Care Team Description 03/25/2020 Machine Clothing Man Visit Phlebotomy Alyson Wick on, [address] [phone] Elevated serum Vtc-Lab creatinine 04/01/2020 Appointment Radiology Paty Wick [address] [phone] 06/20/2020 Machine Clothing Man Visit Clinical Medical 1, [facility] Lab Laboratory 06/25/2020 Office Visit Nephrology Paty Wick, [address] [phone] 07/09/2020 Office Visit Rheumatology Luis Garcia MD [address] [place] [phone] Name Type Priority Associated Diagnoses Order S chedule US RETROPERITONEAL LIMITED IMAGING Routine Elevated serum Expected: creatinine 03/25/2020, Expires: 2020 Health Maintenance Due Date Last Done Comments [...] of this encounter Implants Implanted Type Area Journeyman Lineman Device Identifier Shelf Exp iration Model / Date Serial / L ot Knee-10/09/2015 KNEE Knee Implanted: 10/09/2015 (Quantity not on file) documented as of this encounter Results Not on filedocumented in this encounter Visit Diagnoses Diagnosis Elevated serum creatinine - Primary Other nonspecific findings on examinatio n of blood Hypertension, unspecified type Dyspnea on exertion Other dyspnea and respiratory abnormalit y Elevated serum creatinine Other nonspecific findings on examinatio n of blood documented in this encounter Insurance Payer Benefit Plan / Subscriber ID Effective Phone Address T ype Group Dates MEDICARE MEDICARE PART A [id number] 2005-Pre [phone] [address] [place] Medicare & B sent [phone] BK REYES [phone] [facility] [id number] 2015-Pre I ndemnity [employer] sent [phone] (Work) documented as of this encounter
--- OUTSIDE RECORDS SUMMARY | 2020-04-01 12:15 | XMS REPORT | Summary of Care ---
:1950 Author Organization [facility] - [facility] Address [address] [place], [place] [address] Care Team Providers Name Role Phone Hugo Reid Primary Care Provider Reason for Referral Radiology Services (Routine) Status Reason Specialty Diagnoses / Referred By Referred To Procedures Contact Contact New Request Diagnostic Diagnoses Elevated serum creatinine [place], Radiology Procedures US RETROPERITONEAL LIMITED DEBBIE Newman [address] [place] [phone] Reason for Visit Reason Comments New Patient (Routine) Status Reason Specialty Diagnoses / Referred By Referred To Procedures Contact Contact New Request Nephrology Diagnoses Elevated serum creatinine Griffin Monge Procedures CONSULT/REFERRAL NEPHROLOGY MD Hugo [address] [place], [place] [phone] [place] [address] Encounter Details Date Type Department Care Team Description 03/25/2020 Office Visit [facility] Paty Wick, Elevated serum creatinine (Primary Dx); [facility] Hypertension, unspecified type; [facility] [address] [place] [address] Dyspnea on exertion 2660 [place] [address] South, Entrance B [phone] [place] [address] Allergies Active Allergy Reactions Severity [...] with No / Unsure 03/25/2020 10:15 AM EDGER LINER someone who was confirmed or suspected to have Coronavirus / COVID-19? documented as of this encounter Last Filed Vital Signs Vital Sign Reading Time Taken Comments Blood Pressure 138/86 03/25/2020 10:26 AM EDGER LINER Pulse 73 03/25/2020 10:26 AM EDGER LINER Temperature 35.8 C (96.4 F) 03/25/2020 10:25 AM EDGER LINER Respiratory Rate - - Oxygen Saturation 93% 03/25/2020 10:25 AM EDGER LINER Inhaled Oxygen Concentration - - Weight 108.6 kg (239 lb 6.4 oz) 03/25/2020 10:25 AM EDGER LINER Height 162.6 cm (5' 4") 03/25/2020 10:25 AM EDGER LINER Body Mass Index 41.09 03/25/2020 10:25 AM EDGER LINER documented in this encounter Progress Notes Paty [...] file Gets together: Not on file Attends episcopal service: Not on file Active member of [...] HINOJOSA that has slightly worsened (followed by bank courier - OSH). Patient denies cough, wheezing, orthopnea, [...] intact,non-focal exam without apparent deficit. LABORATORY DATA: Tomb Maker Helper Visit on 2020 Component Date Value VIT [...] provider. FOLLOW-UP: 3 MONTHS Paty Wick, DNP, VAT OVERHAULER, AGPCNP- Nurse Practitioner Division of Nephrology & Hypertension [address] [facility] O [phone] F [phone] [email or web address] R LINER Kayleigh Jovel MA - 03/25/2020 10:30 AM [...] immunization history on file for this patient. R LINER documented in this encounter Plan of Treatment Date Type Specialty Care Team Description 03/25/2020 Tomb Maker Helper Visit Phlebotomy Alyson Wick on, [address] [phone] Elevated serum Vtc-Lab creatinine 04/01/2020 Appointment Radiology Paty Wick [address] [phone] 06/20/2020 Tomb Maker Helper Visit Clinical Medical 1, [facility] Lab Laboratory 06/25/2020 Office Visit Nephrology Paty Wick, [address] [phone] 07/09/2020 Office Visit Rheumatology Luis Garcia MD [address] [place] [phone] Name Type Priority Associated Diagnoses Order [...] of this encounter Implants Implanted Type Area Assistant Art Director Device Identifier Shelf Exp iration Model / [...] ype Group Dates MEDICARE MEDICARE PART A [id number] 2005-Pre [phone] [place] X Medicare & B sent [phone] BK [place] [address] [facility] [id number] 2015-Pre I ndemnity [employer] sent [phone] (Work) documented as of this encounter
[2020-04-01 14:32] LABS: Urine Blood TRACE (NEG); Urine Glucose NEGATIVE (NEG); Urine Protein 1+ (NEG); Urine Specific Gravity 1.025 (1.005-1.030); Urine pH 5.5 (5.0-7.0)
[2020-04-01 15:22] LABS: Urine Amorphous Sediment 3+ /HPF (NONE SEEN); Urine Bacteria 20-50 /HPF (<20); Urine RBC <5 /HPF (NONE SEEN)
--- NOTE | 2020-04-01 15:59 | EDPHYS ---
Physician Documentation [facility] Name: Laurel Hassan Age: 70 yrs Sex: Female : 1950 Arrival Date: 04/01/2020 Time: 12:01 Bed Waiting Private MD: ED Physician Brian Gomez HPI: 04/01 16:01 This 70 yrs old Black Female presents to ER via Ambulatory with complaints of Low Back snw Pain. 16:01 The patient presents with pain that is acute, with no known mechanism of injury. The snw symptoms are located in the low back. Location: right mid back. The problem was sustained from unknown cause. Onset: The symptoms/episode began/occurred suddenly, yesterday, and became persistent. Associated signs and symptoms: Pertinent negatives: abdominal pain, fever, urinary retention, vomiting. Severity of symptoms: At their worst the symptoms were mild, moderate. It is unknown whether or not the patient has had similar symptoms in the past. The patient has not recently seen a physician. Historical: - Allergies: 12:36 Codeine; sv - PMHx: 12:36 Hypertension; Diabetes - NIDDM; sv ROS: 16:01 Constitutional: Negative for fever, chills, and weight loss, Eyes: Negative for injury, snw pain, redness, and discharge, ENT: Negative for injury, pain, and discharge, Neck: Negative for injury, pain, and swelling, Cardiovascular: Negative for chest pain, palpitations, and edema, Respiratory: Negative for shortness of breath, cough, wheezing, and pleuritic chest pain, Abdomen/GI: Negative for abdominal pain, nausea, vomiting, diarrhea, and constipation, : Negative for injury, bleeding, discharge, and swelling, MS/Extremity: Negative for injury and deformity, Skin: Negative for injury, rash, and discoloration, Neuro: Negative for headache, weakness, numbness, tingling, and seizure, Psych: Negative for depression, anxiety, suicide ideation, homicidal ideation, and hallucinations. 16:01 Back: Positive for flank pain, on the left. Exam: 16:01 Constitutional: This is a well developed, well nourished patient who is awake, alert, snw and in no acute distress. Head/Face: Normocephalic, atraumatic. Eyes: Pupils equal round and reactive to light, extra-ocular motions intact. Lids and lashes normal. Conjunctiva and sclera are non-icteric and not injected. Cornea within normal limits. Periorbital areas with no swelling, redness, or edema. ENT: Nares patent. No nasal discharge, no septal abnormalities noted. Tympanic membranes are normal and external auditory canals are clear. Oropharynx with no redness, swelling, or masses, exudates, or evidence of obstruction, uvula midline. Mucous membranes moist. Neck: Trachea midline, no thyromegaly or masses palpated, and no cervical lymphadenopathy. Supple, full range of motion without nuchal rigidity, or vertebral point tenderness. No Meningismus. Chest/axilla: Normal chest wall appearance and motion. Nontender with no deformity. No lesions are appreciated. Cardiovascular: Regular rate and rhythm with a normal S1 and S2. No gallops, murmurs, or rubs. Normal PMI, no JVD. No pulse deficits. Respiratory: Lungs have equal breath sounds bilaterally, clear to auscultation and percussion. No rales, rhonchi or wheezes noted. No increased work of breathing, no retractions or nasal flaring. Abdomen/GI: Soft, non-tender, with normal bowel sounds. No distension or tympany. No guarding or rebound. No evidence of tenderness throughout. Skin: Warm, dry with normal turgor. Normal color with no rashes, no lesions, and no evidence of cellulitis. MS/ Extremity: Pulses equal, no cyanosis. Neurovascular intact. Full, normal range of motion. Neuro: Awake and alert, GCS 15, oriented to person, place, time, and situation. Cranial nerves II-XII grossly intact. Motor strength 5/5 in all extremities. Sensory grossly intact. Cerebellar exam normal. Normal gait. Psych: Awake, alert, with orientation to person, place and time. Behavior, mood, and affect are within normal limits. 16:01 Back: pain, that is very mild, that is mild, of the left mid back, CVA tenderness, that is mild, is noted on the left. Vital Signs: 12:34 BP 149 / 83; Pulse 81; Resp 18; Temp 98; Pulse Ox 98% ; Weight 104.33 kg; Height 5 ft. sv 4 in. (162.56 cm); 12:34 Body Mass Index 39.48 (104.33 kg, 162.56 cm) sv MDM: 15:52 Patient medically screened. snw 16:00 Data reviewed: vital signs, nurses notes. Data interpreted: Pulse oximetry: on room air snw is 98 %. Interpretation: normal. Counseling: I had a detailed discussion with the patient and/or guardian regarding: the historical points, exam findings, and any diagnostic results supporting the discharge/admit diagnosis, lab results, the need for outpatient follow up, to return to the emergency department if symptoms worsen or persist or if there are any questions or concerns that arise at home. Special discussion: Based on the patient's Hx, exam, and Dx evaluation, there is no indication for emergent surgery or inpatient Tx. It is understood by the patient/guardian that if the Sx's persist or worsen they need to return immediately for re-evaluation. I have referred the patient to see his PCP for further evaluation of high blood pressure. Based on the history and exam findings, there is no indication for further emergent testing or inpatient evaluation. I discussed with the patient/guardian the need to see the primary care provider for further evaluation of the symptoms. 04/01 12:45 Order name: Urine Culture snw 04/01 12:45 Order name: Urine Microscopic Only; Complete Time: 15:51 snw 04/01 12:45 Order name: Urine Dipstick-Ancillary (obtain specimen); Complete Time: 14:32 snw 04/01 14:26 Order name: Urine Dipstick--Ancillary (enter results); Complete Time: 15:51 bd Administered Medications: 16:05 Drug: Cipro 500 mg Route: PO; sv 16:05 Follow up: Response: Medication administered at discharge. sv 16:05 Drug: TORadol 30 mg Route: IM; Site: right deltoid; sv 16:05 Follow up: Response: Medication administered at discharge. sv Disposition: 16:32 Co-signature as Attending Physician, Brian Gomez MD I agree with the assessment and kameron plan of care. Disposition: 04/01/20 15:58 Discharged to Home. Impression: Low back pain, Urinary tract infection, site not specified. - Condition is Stable. - Discharge Instructions: Back Pain, Adult, Urinary Tract Infection, Adult, Heat Therapy, Rehydration, Elderly. - Prescriptions for Mobic 7.5 mg Oral Tablet - take 1 tablet by ORAL route once daily take with food; 10 tablet. Cipro 500 mg Oral Tablet - take 1 tablet by ORAL route every 12 hours for 7 days; 14 tablet. - Medication Reconciliation Form, Thank You Letter, Antibiotic Education, Prescription Opioid Use form. - Follow up: Emergency Department; When: As needed; Reason: Worsening of condition. Follow up: Private Physician; When: 2 - 3 days; Reason: Recheck today's complaints, Continuance of care, Re-evaluation by your physician. Signatures: Dispatcher [employer] Viktoriya Sahni RN RN sv Anderson, Corey, MD MD cha Waters, Shelly, GAS EXAMINER-C GAS EXAMINER-Csnw Corrections: (The following items were deleted from the chart) 16:06 15:58 04/01/2020 15:58 Discharged to Home. Impression: Low back pain; Urinary tract sv infection, site not specified. Condition is Stable. Forms are Medication Reconciliation Form, Thank You Letter, Antibiotic Education, Prescription Opioid Use. Follow up: Emergency Department; When: As needed; Reason: Worsening of condition. Follow up: Private Physician; When: 2 - 3 days; Reason: Recheck today's complaints, Continuance of care, Re-evaluation by your physician. snw
--- NOTE | 2020-04-01 15:59 | ER ---
Nurse's Notes [facility] Name: Laurel Hassan Age: 70 yrs Sex: Female : 1950 Arrival Date: 04/01/2020 Time: 12:01 Bed Waiting Private MD: Diagnosis: Low back pain;Urinary tract infection, site not specified Presentation: 04/01 12:34 Chief complaint: Patient states: low back pain x 1 days. Denies urinary symptoms, fall, sv injury. Coronavirus screen: Client denies travel out of the [place] in the last 14 days. At this time, the client does not indicate any symptoms associated with coronavirus-19. Ebola Screen: No symptoms or risks identified at this time. Risk Assessment: Do you want to hurt yourself or someone else? Patient reports no desire to harm self or others. Onset of symptoms was March 31, 2020. 12:34 Method Of Arrival: Ambulatory sv 12:34 Acuity: LUCA 4 sv 12:34 Initial Sepsis Screen: Does the patient meet any 2 criteria? No. Patient's initial sv sepsis screen is negative. Does the patient have a suspected source of infection? No. Patient's initial sepsis screen is negative. Triage Assessment: 12:34 General: Appears in no apparent distress. comfortable, Behavior is calm, cooperative, sv appropriate for age. Pain: Complains of pain in back. Neuro: Level of Consciousness is awake, alert, obeys commands, Oriented to person, place, time, situation, Gait is steady. Respiratory: Respiratory effort is even, unlabored. Historical: - Allergies: 12:36 Codeine; sv - PMHx: 12:36 Hypertension; Diabetes - NIDDM; sv Screenin:55 Abuse screen: Denies threats or abuse. Denies injuries from another. Nutritional sv screening: No deficits noted. Tuberculosis screening: No symptoms or risk factors identified. Fall Risk None identified. Assessment: 16:05 Reassessment: Patient appears in no apparent distress at this time. No changes from sv previously documented assessment. Patient and/or family updated on plan of care and expected duration. Pain level reassessed. Patient is alert, oriented x 3, equal unlabored respirations, skin warm/dry/pink. See triage assessment. Vital Signs: 12:34 BP 149 / 83; Pulse 81; Resp 18; Temp 98; Pulse Ox 98% ; Weight 104.33 kg; Height 5 ft. sv 4 in. (162.56 cm); 12:34 Body Mass Index 39.48 (104.33 kg, 162.56 cm) sv ED Course: 12:01 Patient arrived in ED. rg4 12:34 Arm band placed on. sv 12:35 Triage completed. sv 15:51 Aaliyah Campos [facility]NP-C [facility]. snw 15:51 Brian Gomez MD is Attending Physician. snw 15:55 Viktoriya Torres RN is Primary Nurse. sv 15:55 Nurse Practitioner and/or Physician Ground Host/Hostess to see patient. sv 15:55 Patient has correct armband on for positive identification. sv 15:55 No provider procedures requiring assistance completed. Patient did not have IV access sv during this emergency room visit. Administered Medications: 16:05 Drug: Cipro 500 mg Route: PO; sv 16:05 Follow up: Response: Medication administered at discharge. sv 16:05 Drug: TORadol 30 mg Route: IM; Site: right deltoid; sv 16:05 Follow up: Response: Medication administered at discharge. sv Outcome: 15:58 Discharge ordered by . snw 16:06 Discharged to home ambulatory, with family. sv 16:06 Condition: stable 16:06 Discharge instructions given to patient, Instructed on discharge instructions, follow up and referral plans. medication usage, Demonstrated understanding of instructions, follow-up care, medications, Prescriptions given X 2. 16:06 Patient left the ED. sv Signatures: Viktoriya Torres RN RN Aaliyah Campos FNP-C PUBLIC RELATIONS REPRESENTATIVE-[facility] Denia Brush rg4 Corrections: (The following items were deleted from the chart) 12:36 12:34 104.33 kg; Height 5 ft. 4 in.; BMI: 39.4; sv sv
[2020-04-01] MEDS ORDERED: CIPROFLOXACIN HCL 500 MG TAB ONE (16:13)
[2020-04-01] MEDS ORDERED: KETOROLAC 30 MG/ML INJ ONE (16:13)
[2020-04-01 17:03] VITALS: BP 149/83; TEMP 98; O2SAT 98
== END 2020-04-01 16:06 | disposition home or self-care (01) ==
LOC: ER 12:00
DX: N39.0 Urinary tract infection, site not specified (principal); I10 Essential (primary) hypertension; Z88.5 Allergy status to narcotic agent
CPT/HCPCS: 81003; 81015; 87086; 87088; 96372; 99283

== ENCOUNTER 2020-07-16 19:44 | Emergency (ER) | payer OTHER ==
--- OUTSIDE RECORDS SUMMARY | 2020-07-16 19:46 | XMS REPORT | Continuity of Care Document ---
:1950 Author Organization [facility] t Address [address] [place] [address] Care Team Providers Name Role Phone Radha DIAZ Attending Clinician Rajendra Brooke Attending Clinician Problems This patient has no known problems. Allergies, Adverse Reactions, Alerts This patient has no known allergies or adverse reactions. Medications This patient has no known medications. Procedures This patient has no known procedures. Encounters Start End Encounter Admission Attending Care Care Encounter Source Date/Time Date/Time Type Type Clinicians Facility Department ID 2020-07-09 2020-07-09 Office EL Garcia [id number] 08:56:37 09:26:37 Visit Luis GLOVER [id number] [facility] [id number] CENTER [id number] [facility] 2019-09-05 2019-09-05 Outpatient MARYCRUZ Brooke MHSE [id number] 12:45:00 23:59:00 Magnus Rajendra 02 2019-09-05 2019-09-05 Outpatient MHSE JONATHAN [id number] MH 12:45:00 12:45:00 Renetta valadez [facility] 2019-01-04 2019-01-04 Outpatient GIANNI Brooke MHOIH [id number] 11:49:00 23:59:00 Magnus Rajendra 07 2018-07-14 2018-07-14 Outpatient MARYCRUZ Brooke MHSE [id number] 10:45:00 23:59:00 Magnus Rajendra 2018-07-14 2018-07-14 Outpatient MHSE JONATHAN [id number] MH 10:45:00 10:45:00 Renetta valadez [facility] 2017-07-06 2017-07-06 Outpatient Edwardo, MHSE MHSE [id number] 09:19:00 23:59:00 Magnus Rajendra 00 2017-07-06 2017-07-06 Outpatient Edwardo, MHSE MHSE [id number] 09:19:00 23:59:00 Magnus Rajendra 00 2017-06-24 2017-06-24 Outpatient Edwardo, MH29 MH29 [id number] 10:00:00 10:00:00 Magnus Rajendra 2017-01-04 2017-01-04 Outpatient Edwardo, [id number]. [id number]. [id number] 10:00:00 23:59:00 Magnus Rajendra [id number] 2016-07-06 2016-07-06 Outpatient Edwardo, 2.16.840. [id number]. [id number] 08:54:00 23:59:00 Magnus Rajendra [id number] 2016-01-23 2016-01-23 Outpatient Edwardo, 2.16.840. [id number]. [id number] 10:11:00 23:59:00 Magnus Rajendra [id number] 2015-07-03 2015-07-03 Outpatient Edwardo, 2.16.840. [id number]. [id number] 07:45:00 23:59:00 Magnus Rajendra [id number] 5.108 Results This patient has no known results.
[2020-07-16 23:35] LABS: Urine Blood Trace-intact (Negative); Urine Glucose Negative (Negative); Urine Protein 2+ (Negative); Urine Specific Gravity 1.025 (1.005-1.030)
[2020-07-16 23:48] LABS: Absolute Lymphocytes (CBC) 1.8 K/uL (0.7-4.9); Basophils % 0.9 % (0-1.3); Hematocrit 41.5 % (36.0-45.0); Lymphocytes % 13.3 % (15.3-44.8); MPV 8.3 fL (7.6-11.3); RBC Red Blood Cell Count 5.38 M/uL (3.86-4.86)
[2020-07-16 23:54] LABS: Albumin 3.6 g/dL (3.4-5.0); Bilirubin Direct 0.2 mg/dL (0-0.2); Bilirubin Total 0.6 mg/dL (0.2-1.0); Potassium 4.6 mmol/L (3.5-5.1); Protein, Total 8.3 g/dL (6.4-8.2)
[2020-07-17] MEDS ORDERED: MORPHINE 2 MG/ML SYR ONE (00:04)
[2020-07-17] MEDS ORDERED: ONDANSETRON 4 MG/2 ML VIAL ONE (00:05)
--- NOTE | 2020-07-17 00:59 | ER ---
Nurse's Notes [facility] Name: Laurel Hassan Age: 70 yrs Sex: Female : 1950 Arrival Date: 07/16/2020 Time: 19:45 Bed 8 Private MD: Diagnosis: Diverticulitis of intestine, part unspecified, without perforation or abscess without bleeding Presentation: 07/16 21:15 Chief complaint: Patient states: she started having right lower abdominal pain this bb morning denies radiation, pain is intermittent, and currently is 8/10, denies dysuria, denies vomiting, nausea, or diarrhea. Coronavirus screen: At this time, the client does not indicate any symptoms associated with coronavirus-19. Ebola Screen: No symptoms or risks identified at this time. Initial Sepsis Screen: Does the patient meet any 2 criteria? No. Patient's initial sepsis screen is negative. Does the patient have a suspected source of infection? No. Patient's initial sepsis screen is negative. Risk Assessment: Do you want to hurt yourself or someone else? Patient reports no desire to harm self or others. Onset of symptoms was July 16, 2020. 21:15 Method Of Arrival: Ambulatory bb 21:15 Acuity: LUCA 3 bb Triage Assessment: 21:18 General: Appears in no apparent distress. uncomfortable, Behavior is calm, cooperative. bb Pain: Complains of pain in abdomen Pain currently is 8 out of 10 on a pain scale. Neuro: Level of Consciousness is awake, alert, obeys commands, Oriented to person, place, time, situation. Respiratory: Respiratory effort is even, unlabored, Respiratory pattern is regular. GI: Abdomen is round Reports lower abdominal pain, Patient currently denies diarrhea, nausea, vomiting. Musculoskeletal: Circulation, motion, and sensation intact. Historical: - Allergies: 21:18 Codeine; bb - Home Meds: 21:18 Unable to obtain [Active]; bb - PMHx: 21:18 Diabetes - NIDDM; Hypertension; bb - PSHx: 21:18 Knee surgery; bb - Immunization history:: Adult Immunizations up to date, Client reports receiving the 2nd dose of the Covid vaccine. - Social history:: Smoking status: Patient denies any tobacco usage or history of. Screenin:00 Abuse screen: Denies threats or abuse. Denies injuries from another. Nutritional jm8 screening: No deficits noted. Tuberculosis screening: No symptoms or risk factors identified. Fall Risk IV access (20 points). Assessment: 23:00 General: Appears in no apparent distress. Behavior is calm, cooperative, appropriate [facility] for age. 23:00 Pain: Complains of pain in right lower quadrant Pain currently is 8 out of 10 on a pain [facility] scale. Pain began this morning. Neuro: No deficits noted. Cardiovascular: No deficits noted. Respiratory: No deficits noted. GI: Reports lower abdominal pain. : No deficits noted. EENT: No deficits noted. Derm: No deficits noted. Musculoskeletal: No deficits noted. Vital Signs: 21:15 BP 119 / 77; Pulse 96; Resp 18 S; Temp 99.3(O); Pulse Ox 95% on R/A; Weight 106.14 kg bb (R); Height 5 ft. 4 in. (162.56 cm) (R); Pain 8; 07/17 01:15 BP 122 / 78; Pulse 88; Resp 17; Pulse Ox 96% ; jm8 07/16 21:15 Body Mass Index 40.17 (106.14 kg, 162.56 cm) ED Course: 07/16 19:45 Patient arrived in ED. cl3 21:17 Triage completed. bb 21:18 Arm band placed on Patient placed in waiting room, Patient notified of wait time. bb Family accompanied patient. 21:29 Shannan Guy FNP-C is [facility]. kb 21:29 Brian Gomez MD is Attending Physician. 23:00 Patient has correct armband on for positive identification. Bed in low position. Call [facility] light in reach. Side rails up X2. 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 Pulse ox on. NIBP on. Door closed. Warm blanket given. 23:00 Inserted saline lock: 20 gauge. 8 23:00 No provider procedures requiring assistance completed. [facility] 23:09 Zachary Douglass, RN is Primary Nurse. 07/17 00:27 CT Abd/Pelvis - IV Contrast Only In Process Unspecified. EDMS 01:14 IV discontinued. [facility] Administered Medications: 07/16 23:40 Drug: morphine 2 mg {Note: RASS 0.} Route: IVP; Site: right antecubital; 07/17 01:15 Follow up: Response: No adverse reaction 8 07/16 23:42 Drug: Zofran (Ondansetron) 4 mg Route: IVP; Site: right antecubital; 07/17 01:16 Follow up: Response: No adverse reaction jm8 01:00 Drug: Cipro (ciprofloxacin) 500 mg Route: PO; mg2 01:21 Follow up: Response: No adverse reaction; Medication administered at discharge. mg2 01:00 Drug: Flagyl (metroNIDAZOLE) 500 mg Route: PO; mg2 01:20 Follow up: Response: No adverse reaction; Medication administered at discharge. mg2 01:02 Drug: Rocephin (cefTRIAXone) 1 grams Route: IV; Rate: calculated rate; Site: right mg2 antecubital; 01:21 Follow up: Response: No adverse reaction; Medication administered at discharge.; IV mg2 Status: Completed infusion Outcome: 00:58 Discharge ordered by MD. kb 01:13 Discharged to home via wheelchair. jm8 01:13 Condition: improved 01:13 Discharge instructions given to patient, family. 01:20 Patient left the ED. jm8 Signatures: Dispatcher [employer] EDMS Shannan Guy, TECHNICAL EDITOR-C TECHNICAL EDITOR-CkYsabel Saez RN RN bb Zachary Douglass RN RN Hung Rabago, JOSAFAT MAURICE [facility] 3 Jose Luis Ibanez RN RN jm8 Corrections: (The following items were deleted from the chart) 01:12 01:09 Abuse screen: Denies threats or abuse. Denies injuries from another. jm8 jm8 01:09 Nutritional screening: No deficits noted. jm8 jm8 01:09 Tuberculosis screening: No symptoms or risk factors identified. jm8 jm8 : 01:09 Fall Risk IV access (20 points). jm8 jm8
--- NOTE | 2020-07-17 00:59 | EDPHYS ---
Physician Documentation [facility] Name: Laurel Hassan Age: 70 yrs Sex: Female : 1950 Arrival Date: 07/16/2020 Time: 19:45 Bed 8 Private MD: ED Physician Brian Gomez HPI: 07/17 00:47 This 70 yrs old Black Female presents to ER via Ambulatory with complaints of Right kb Side Pain. 00:47 The patient presents with abdominal pain in the right upper quadrant, right lower kb quadrant. Onset: The symptoms/episode began/occurred this morning. The symptoms do not radiate. Associated signs and symptoms: none. The symptoms are described as constant. Modifying factors: The symptoms are alleviated by nothing, the symptoms are aggravated by nothing. Severity of pain: At its worst the pain was moderate in the emergency department the pain is unchanged. The patient has not experienced similar symptoms in the past. The patient has not recently seen a physician. Pt reports she woke up with right abd pain. Denies fever, n/v/d. Historical: - Allergies: 07/16 21:18 Codeine; bb - Home Meds: 21:18 Unable to obtain [Active]; bb - PMHx: 21:18 Diabetes - NIDDM; Hypertension; bb - PSHx: 21:18 Knee surgery; bb - Immunization history:: Adult Immunizations up to date, Client reports receiving the 2nd dose of the Covid vaccine. - Social history:: Smoking status: Patient denies any tobacco usage or history of. ROS: 07/17 00:46 Constitutional: Negative for fever, chills, and weight loss, Cardiovascular: Negative kb for chest pain, palpitations, and edema, Respiratory: Negative for shortness of breath, cough, wheezing, and pleuritic chest pain, : Negative for injury, bleeding, discharge, and swelling, MS/Extremity: Negative for injury and deformity, Skin: Negative for injury, rash, and discoloration, Neuro: Negative for headache, weakness, numbness, tingling, and seizure. Abdomen/GI: Positive for abdominal pain, Negative for nausea, vomiting, and diarrhea. Exam: 00:46 Constitutional: This is a well developed, well nourished patient who is awake, alert, kb and in no acute distress. Head/Face: Normocephalic, atraumatic. Cardiovascular: Regular rate and rhythm with a normal S1 and S2. No gallops, murmurs, or rubs. No pulse deficits. Respiratory: Respirations even and unlabored. No increased work of breathing, no retractions or nasal flaring. Skin: Warm, dry with normal turgor. Normal color. MS/ Extremity: Pulses equal, no cyanosis. Neurovascular intact. Full, normal range of motion. Neuro: Awake and alert, GCS 15, oriented to person, place, time, and situation. Moves all extremities. Normal gait. 00:46 Abdomen/GI: Inspection: obese Bowel sounds: normal, in all quadrants, Palpation: soft, in all quadrants, mild abdominal tenderness, in the right upper quadrant and right lower quadrant. Vital Signs: 07/16 21:15 BP 119 / 77; Pulse 96; Resp 18 S; Temp 99.3(O); Pulse Ox 95% on R/A; Weight 106.14 kg bb (R); Height 5 ft. 4 in. (162.56 cm) (R); Pain 8/10; 07/17 01:15 BP 122 / 78; Pulse 88; Resp 17; Pulse Ox 96% ; jm8 07/16 21:15 Body Mass Index 40.17 (106.14 kg, 162.56 cm) bb MDM: 07/16 23:06 Patient medically screened. kb 07/17 00:22 Data reviewed: vital signs, nurses notes. Data interpreted: Pulse oximetry: on room air kb is 95 %. Interpretation: normal. 00:51 Transition of care: After a detail discussion of the patient's case, care is kb transferred to Brian Gomez MD. 00:57 Counseling: I had a detailed discussion with the patient and/or guardian regarding: the kb historical points, exam findings, and any diagnostic results supporting the discharge/admit diagnosis, lab results, radiology results, the need for outpatient follow up, a family practitioner, to return to the emergency department if symptoms worsen or persist or if there are any questions or concerns that arise at home. ED course: Diagnosis discussed with pt. Pt states she has had this before. Pt would like to go home and try outpt antibiotics. Educated to return for worsening pain, fever, inability to tolerate antibiotics. Verbal understanding received. . 07/16 23:06 Order name: Basic Metabolic Panel; Complete Time: 23:55 kb 04/20 23:06 Order name: CBC with Diff; Complete Time: 23:55 kb 07/16 23:06 Order name: Hepatic Function; Complete Time: 23:55 kb 07/16 23:06 Order name: Lipase; Complete Time: 23:55 kb 07/16 23:26 Order name: CT Abd/Pelvis - IV Contrast Only kb 07/16 23:35 Order name: Urine Dipstick-Ancillary; Complete Time: 23:44 EDMS 07/16 23:06 Order name: IV Saline Lock; Complete Time: 23:27 kb 07/16 23:06 Order name: Labs collected and sent; Complete Time: 23:27 kb Administered Medications: 07/16 23:40 Drug: morphine 2 mg {Note: RASS 0.} Route: IVP; Site: right antecubital; 07/17 01:15 Follow up: Response: No adverse reaction [facility] 07/16 23:42 Drug: Zofran (Ondansetron) 4 mg Route: IVP; Site: right antecubital; 07/17 01:16 Follow up: Response: No adverse reaction 8 01:00 Drug: Cipro (ciprofloxacin) 500 mg Route: PO; mg2 01:21 Follow up: Response: No adverse reaction; Medication administered at discharge. mg2 01:00 Drug: Flagyl (metroNIDAZOLE) 500 mg Route: PO; mg2 01:20 Follow up: Response: No adverse reaction; Medication administered at discharge. mg2 01:02 Drug: Rocephin (cefTRIAXone) 1 grams Route: IV; Rate: calculated rate; Site: right [facility] antecubital; :21 Follow up: Response: No adverse reaction; Medication administered at discharge.; IV mg2 Status: Completed infusion Disposition: 09:56 Co-signature as Attending Physician, Brian DIAZ I agree with the assessment and kameron plan of care. Disposition: 07/17/20 00:58 Discharged to Home. Impression: Diverticulitis of intestine, part unspecified, without perforation or abscess without bleeding. - Condition is Stable. - Discharge Instructions: Diverticulitis, Citm-te-Rmmx, Abdominal Pain, Adult, Ugkn-[id number]. - Prescriptions for Bentyl 20 mg Oral Tablet - take 1 tablet by ORAL route every 6 hours As needed; 20 tablet. Flagyl 500 mg Oral Tablet - take 1 tablet by ORAL route every 8 hours for 10 days; 30 tablet. Zofran 4 mg Oral Tablet - take 1 tablet by ORAL route every 6 hours As needed; 20 tablet. Cipro 500 mg Oral Tablet - take 1 tablet by ORAL route every 12 hours for 10 days; 20 tablet. - Medication Reconciliation Form, Thank You Letter, Antibiotic Education, Prescription Opioid Use form. - Follow up: Emergency Department; When: As needed; Reason: Worsening of condition. Follow up: Private Physician; When: 2 - 3 days; Reason: Recheck today's complaints, Continuance of care, Re-evaluation by your physician. Signatures: Dispatcher [employer] EDMS Shannan Guy, CORE STICKER-C CORE STICKER-Ckb Brian Gomez MD MD cha Ballard, Brenda, RN RN Zachary Santos, Hung Duke RN, RN RN Jose Luis Ulloa RN RN jm8 Corrections: (The following items were deleted from the chart) 01:20 00:58 07/17/2020 00:58 Discharged to Home. Impression: Diverticulitis of intestine, jm8 part unspecified, without perforation or abscess without bleeding. Condition is Stable. Discharge Instructions: Abdominal Pain, Adult, [id number]. Prescriptions for Bentyl 20 mg Oral Tablet - take 1 tablet by ORAL route every 6 hours As needed; 20 tablet. and Forms are Medication Reconciliation Form, Thank You Letter, Antibiotic Education, Prescription Opioid Use. Follow up: Emergency Department; When: As needed; Reason: Worsening of condition. Follow up: Private Physician; When: 2 - 3 days; Reason: Recheck today's complaints, Continuance of care, Re-evaluation by your physician. kb
[2020-07-17] MEDS ORDERED: metroNIDAZOLE 500 MG TABLET ONE (01:20)
[2020-07-17] MEDS ORDERED: CEFTRIAXONE/SWI 1gm 1 GM/10 ML SYR ONE (01:20)
[2020-07-17] MEDS ORDERED: CIPROFLOXACIN HCL 500 MG TAB ONE (01:20)
[2020-07-17 05:20] VITALS: BP 119/77; TEMP 99.3; O2SAT 95
--- NOTE | 2020-07-17 11:45 | RAD REPORT ---
EXAM DESCRIPTION: CT ABDOMEN PELVIS WITH IV CONTRAST CLINICAL HISTORY: ABD PAIN. COMPARISON: None. TECHNIQUE: CT of the abdomen and pelvis was performed following intravenous administration of iodina georgie contrast. Arterial phase images through the abdomen, and portal venous phase images through the a bdomen and pelvis were obtained. Oral contrast was not administered. Axial, coronal, and sagittal sof t tissue window reconstructions were created and sent to PACS. This exam was performed according to our departmental dose-optimization program, which includes autom ated exposure control, adjustment of the mA and/or kV according to patient size and/or use of iterati ve reconstruction technique. FINDINGS: Thoracic: Prominent vessel in the lingula. Small calcified granuloma in the left lower lob e. Hepatobiliary: Mild hepatomegaly, measuring 19.2 cm in length. No concerning hepatic lesion identifie d. The hepatic and portal veins are patent. The gallbladder is surgically absent. No biliary ductal d ilatation. Pancreas: Unremarkable. Spleen: Unremarkable. Gastrointestinal: Moderate watkins colonic diverticulosis, with a region of wall thickening and fat stran ding in the proximal descending colon extending for approximately 7.7 cm in length. No adjacent fluid collections or free air. No evidence of bowel obstruction. The appendix is normal. Adrenals: No abnormality identified in either adrenal gland. Renal: Few small chronic renal cortical defects bilaterally. No concerning parenchymal abnormality in either kidney. No hydronephrosis or urolithiasis. Bladder/Reproductive: Unremarkable appearance of the urinary bladder by CT technique. Prior hysterect anette. Vascular/Lymphatics: No lymphadenopathy identified by CT size criteria. Abdominal aorta is normal in caliber. The major visceral vessels are patent. Musculoskeletal: No concerning osseous lesion identified. Mild spinal degenerative changes. Tiny fat- containing periumbilical hernia with no associated inflammatory changes. Fluid / peritoneum: Trace free fluid in the pelvis. No free intraperitoneal air identified. IMPRESSION 1. Acute diverticulitis of the descending colon. No fluid collections or free air. 2. Prominent vessel in the lingula. Consider correlation with nonemergent CTA of the chest to evalu ate for pulmonary vascular malformation. 3. Mild hepatomegaly. Electronically signed by: Skyla Jean MD 07/17/2020 12:39 AM CDT Due to temporary technical issues with the PACS/Fluency reporting system, reports are being signed by the in house radiologist without review as a courtesy to ensure prompt reporting. The interpreting r adiologist is fully responsible for the content of the report.
== END 2020-07-17 01:20 | disposition home or self-care (01) ==
LOC: ER 19:44
DX: K57.32 Diverticulitis of large intestine without perforation or abscess without bleeding (principal); I10 Essential (primary) hypertension; E11.9 Type 2 diabetes mellitus without complications; Z88.5 Allergy status to narcotic agent
CPT/HCPCS: 85025; 80048; 36415; 80076; 81003; 83690; 74177; Q9967; J2270; J0696; J2405; 96365; 96375; 99284

== ENCOUNTER 2023-02-25 11:06 | Emergency (ER) | payer OTHER ==
[2023-02-25 11:53] LABS: Protime INR 1.39
[2023-02-25 11:59] LABS: Absolute Lymphocytes (CBC) 1.9 K/uL (0.7-4.9); Hematocrit 37.8 % (36.0-45.0); Lymphocytes % 21.2 % (15.3-44.8); MCV 82.2 fL (80-100); MPV 8.6 fL (7.6-11.3); Platelets 233 thou/uL (152-406)
[2023-02-25 12:08] LABS: Albumin 3.3 g/dL (3.4-5.0); Bilirubin Direct 0.4 mg/dL (0-0.2); Bilirubin Indirect, Calculated 0.5 mg/dL (0.2-0.8); Bilirubin Total 0.9 mg/dL (0.2-1.0); Magnesium 1.9 mg/dL (1.6-2.4); Potassium 4.1 mEq/L (3.5-5.1); Protein, Total 7.7 g/dL (6.4-8.2); Troponin High Sensitivity 7.2 pg/mL (<58.9)
[2023-02-25 12:22] LABS: Specific Gravity 1.021 (1.005-1.030); Urine Bilirubin NEGATIVE (Negative); Urine Blood Negative (Negative); Urine Clarity Clear (Clear); Urine Color Light-Yellow (Yellow); Urine Glucose NEGATIVE (Negative); Urine Protein NEGATIVE (Negative); Urine Urobilinogen Normal (Normal)
--- NOTE | 2023-02-25 13:41 | RAD REPORT ---
EXAM DESCRIPTION: Julia Single View02/25/2023 1:07 pm CLINICAL HISTORY: CHEST PAIN COMPARISON: Abdomen Pelvis W Contrast dated 07/17/2020 TECHNIQUE: Portable AP view of the chest. FINDINGS: The lungs are clear. Fairly well-circumscribed rounded/ovoid retrocardiac opacity probably corresponds to fat containing posterior diaphragmatic hernia seen on the prior CT. Faint lobulated o pacity in the left lingula measuring up to 3.2 cm probably corresponds to known granuloma also seen o n the prior CT. No pneumothorax or effusion. The cardiomediastinal contours are unremarkable. IMPRESSION: No acute cardiopulmonary process. Stable findings as above.
[2023-02-25] MEDS ORDERED: ONDANSETRON 4 MG/2 ML VIAL ONE (13:49)
[2023-02-25] MEDS ORDERED: ASPIRIN 81 MG CHEWABLE TABLET ONE (13:49)
[2023-02-25] MEDS ORDERED: NA CHLORIDE 0.9% 1,000 ML ONE (13:49)
--- NOTE | 2023-02-25 15:10 | EKG ---
Test Date: 2023-02-25 Test Time: 11:31:46 Manager Application: OSCAR MEASUREMENT RESULTS: Intervals: Rate: 52 WI: 144 QRSD: 78 QT: 470 QTc: 437 [place]: P: WI: 144 QRS: 15 T: 38 INTERPRETIVE STATEMENTS: Sinus bradycardia with sinus arrhythmia Otherwise normal ECG No previous ECG available for comparison Electronically Signed On 02-25-23 15:09:43 FORMING ROLL OPERATOR by Michael Hutchison
--- NOTE | 2023-02-25 15:21 | EDPHYS ---
Physician Documentation [facility] Name: Laurel Hassan Age: 72 yrs Sex: Female : 1950 Arrival Date: 02/25/2023 Time: 11:06 Bed IW1 Private MD: ED Physician Brian Gomez HPI: 02/25 12:06 This 72 yrs old Black Female presents to ER via Ambulatory with complaints of Chest kameron Pain, Nausea. 12:06 The patient or guardian reports chest pain that is located primarily in the anterior kameron chest wall, bilaterally. Onset: 2 day(s) ago. Historical: - Allergies: 11:36 Codeine; ko1 - PMHx: 11:36 Diabetes - NIDDM; Hypertension; ko1 - Immunization history:: Adult Immunizations up to date. - Social history:: Smoking status: Patient denies any tobacco usage or history of. ROS: 12:06 Constitutional: Negative for fever, chills, and weight loss, Eyes: Negative for injury, kameron pain, redness, and discharge, ENT: Negative for injury, pain, and discharge, Neck: Negative for injury, pain, and swelling, Respiratory: Negative for shortness of breath, cough, wheezing, and pleuritic chest pain, Abdomen/GI: Negative for abdominal pain, nausea, vomiting, diarrhea, and constipation, Back: Negative for injury and pain, : Negative for injury, bleeding, discharge, and swelling, MS/Extremity: Negative for injury and deformity, Skin: Negative for injury, rash, and discoloration, Neuro: Negative for headache, weakness, numbness, tingling, and seizure, Psych: Negative for depression, anxiety, suicide ideation, homicidal ideation, and hallucinations, Allergy/Immunology: Negative for hives, rash, and allergies, Endocrine: Negative for neck swelling, polydipsia, polyuria, polyphagia, and marked weight changes, Hematologic/Lymphatic: Negative for swollen nodes, abnormal bleeding, and unusual bruising, 12:06 Cardiovascular: Positive for chest pain, with movement, of the chest, Exam: 12:06 Constitutional: This is a well developed, well nourished patient who is awake, alert, kameron and in no acute distress. Head/Face: Normocephalic, atraumatic. Eyes: Pupils equal round and reactive to light, extra-ocular motions intact. Lids and lashes normal. Conjunctiva and sclera are non-icteric and not injected. Cornea within normal limits. Periorbital areas with no swelling, redness, or edema. ENT: Nares patent. No nasal discharge, no septal abnormalities noted. Tympanic membranes are normal and external auditory canals are clear. Oropharynx with no redness, swelling, or masses, exudates, or evidence of obstruction, uvula midline. Mucous membranes moist. Neck: Trachea midline, no thyromegaly or masses palpated, and no cervical lymphadenopathy. Supple, full range of motion without nuchal rigidity, or vertebral point tenderness. No Meningismus. Cardiovascular: Regular rate and rhythm with a normal S1 and S2. No gallops, murmurs, or rubs. Normal PMI, no JVD. No pulse deficits. Respiratory: Lungs have equal breath sounds bilaterally, clear to auscultation and percussion. No rales, rhonchi or wheezes noted. No increased work of breathing, no retractions or nasal flaring. Abdomen/GI: Soft, non-tender, with normal bowel sounds. No distension or tympany. No guarding or rebound. No evidence of tenderness throughout. Back: No spinal tenderness. No costovertebral tenderness. Full range of motion. Female : Normal external genitalia. Skin: Warm, dry with normal turgor. Normal color with no rashes, no lesions, and no evidence of cellulitis. MS/ Extremity: Pulses equal, no cyanosis. Neurovascular intact. Full, normal range of motion. Neuro: Awake and alert, GCS 15, oriented to person, place, time, and situation. Cranial nerves II-XII grossly intact. Motor strength 5/5 in all extremities. Sensory grossly intact. Cerebellar exam normal. Normal gait. Psych: Awake, alert, with orientation to person, place and time. Behavior, mood, and affect are within normal limits. 12:06 Chest/axilla: Inspection: normal, Palpation: no acute changes, Axilla: are normal, Breasts: are normal, Lymph nodes: lymphadenopathy is not appreciated, 12:22 ECG was reviewed by the Attending Physician. [facility] 15:32 ECG was reviewed by the Attending Physician. [facility] Vital Signs: 11:35 BP 143 / 75; Pulse 52; Resp 14; Temp 97.4; Pulse Ox 100% ; Weight 100 kg; ll1 15:44 BP 141 / 71; Pulse 55; Resp 15; Pulse Ox 100% ; ll1 MDM: 11:45 Patient medically screened. kameron 12:09 HEART Score: History: Slightly Suspicious (0), ECG: Non specific repolarization kameron disturbance / LBTB / PM (1), Age: > or = 65 years (2), Risk Factors: > or = 3 Risk factors for atherosclerotic disease (2), [Hypertension] [DM] [+ Family HX] [Obesity] Troponin: < or = 1 x Normal Limit (0). The patient was given aspirin in the Emergency Department. JOEY Risk Score: 1 - patient's age is greater or equal to 65 years, 1 - Three or more CAD risk factors, 1- Known CAD, 1 - ASA use in past 7 days, 1 - Recent [<24hrs] Severe Angina, TOTAL SCORE = 5. Data reviewed: vital signs, nurses notes, lab test result(s), EKG, radiologic studies, plain films. Consideration of Admission/Observation Escalation of care including admission/observation considered. I considered the following discharge prescriptions or medication management in the emergency department Medications were administered in the Emergency Department. See MAR. Independent interpretation of the following test(s) in the Emergency Department EKG: See my EKG interpretation above. Test considered but Not performed: CT: no ct chest. Care significantly affected by the following chronic conditions: Diabetes, Hypertension, Obesity. 02/25 11:20 Order name: Basic Metabolic Panel; Complete Time: 12:12 [facility] 02/25 11:20 Order name: CBC with Diff; Complete Time: 12:12 kameron 02/25 11:20 Order name: LFT's; Complete Time: 12:12 02/25 11:20 Order name: Magnesium; Complete Time: 12:12 kameron 02/25 11:20 Order name: NT PRO-BNP; Complete Time: 12:12 kameron 02/25 11:20 Order name: PT-INR; Complete Time: 12:12 kameron 02/25 11:20 Order name: Troponin HS; Complete Time: 12:12 kameron 02/25 11:20 Order name: Lipase; Complete Time: 12:12 kameron 02/25 11:20 Order name: Urinalysis w/ reflexes; Complete Time: 13:27 kameron 02/25 12:12 Order name: Troponin HS: 2pm; Complete Time: 15:16 [facility] 02/25 11:20 Order name: XRAY Chest (1 view); Complete Time: 13:48 [facility] 02/25 13:48 Order name: US Extremity Venous W Compression Steve; Complete Time: 15:49 [facility] 02/25 11:20 Order name: EKG; Complete Time: 11:21 [facility] 02/25 12:23 Order name: EKG; Complete Time: 12:23 [facility] 02/25 11:20 Order name: EKG - Nurse/Tech; Complete Time: 11:47 [facility] 02/25 11:20 Order name: IV Saline Lock; Complete Time: 11:47 [facility] 02/25 11:20 Order name: Labs collected and sent; Complete Time: 12:08 [facility] 02/25 11:20 Order name: O2 Per Protocol; Complete Time: 13:33 [facility] 02/25 11:20 Order name: O2 Sat Monitoring; Complete Time: 13:33 [facility] 02/25 12:23 Order name: EKG - Nurse/Tech; Complete Time: 13:32 [facility] EC:22 Rate is 52 beats/min. Rhythm is regular. QRS [place] is Normal. UT interval is normal. QRS kameron interval is normal. QT interval is normal. No Q waves. T waves are Normal. No ST changes noted. Clinical impression: Sinus bradycardia and No evidence of ischemia. Interpreted by me. Reviewed by me. 15:32 Rate is 67 beats/min. Rhythm is regular. QRS [place] is Normal. UT interval is normal. QRS kameron interval is normal. QT interval is normal. No Q waves. T waves are Normal. No ST changes noted. Clinical impression: NSR w/ Non-specific ST/T Changes and No evidence of ischemia. Interpreted by me. Reviewed by me. Administered Medications: 13:46 Drug: NS 0.9% IV 1000 ml IV at 125 ml/hr continuous Route: IV; Rate: 125 ml/hr; Site: jl7 right antecubital; 15:55 Follow up: Response: No adverse reaction; IV Status: Completed infusion; IV Intake: ll1 500ml 13:46 Drug: Aspirin PO Chewable Tablet 324 mg PO once; 81 mg tablets x 4 Route: PO; jl7 15:53 Follow up: Response: No adverse reaction ll1 13:48 Not Given (Patient Refused): ondansetron 4 mg IVP once; over 2 minutes 7 15:53 Drug: Hydrocodone-Acetaminophen PO (7.5 mg-325 mg) 1 tabs PO once Route: PO; ll1 15:55 Follow up: Response: No adverse reaction ll1 15:53 Drug: Ondansetron Oral Disintegrating Tablet Oral Disintegrating Tablet 4 mg PO once ll1 Route: PO; 15:55 Follow up: Response: No adverse reaction ll1 Disposition Summary: 02/25/23 15:20 Discharge Ordered Notes: Location: Home kameron Problem: new kameron Symptoms: have improved kameron Condition: Stable kameron Diagnosis - Chest pain, unspecified - wall kameron - Essential (primary) hypertension kameron - Type 2 diabetes mellitus with hyperglycemia kameron - Unspecified kidney failure - chronic kameron Followup: kameron - With: Private Physician - When: 2 - 3 days - Reason: Recheck today's complaints, Continuance of care, Re-evaluation by your physician Followup: kameron - With: Michael Hutchison MD - When: 2 - 3 days - Reason: Recheck today's complaints, Re-evaluation by your physician Discharge Instructions: - Discharge Summary Sheet kameron - Nonspecific Chest Pain, Adult kameron - Chest Wall Pain kameron - Hypertension, Adult kameron - Chest Wall Pain, [id number] kameron - Nonspecific Chest Pain, Adult, [id number] kameron - Hypertension, Adult, [id number] kameron - Diabetes Mellitus and Nutrition, Adult kameron - How to Take Your Blood Pressure, [id number] kameron - Aspirin and Your Heart kameron - Managing Your Hypertension kameron Forms: - Medication Reconciliation Form kameron - Thank You Letter kameron - Antibiotic Education kameron - Prescription Opioid Use kameron - Patient Portal Instructions kameron - Leadership Thank You Letter kameron - Family Work Release ko1 Signatures: Dispatcher [employer] Brian Henley MD MD cha Leal, Jahala RN RN jl7 Kirit Goins RN RN ll1 Haydee Maravilla, RN RN ko1
--- NOTE | 2023-02-25 15:21 | ER ---
Nurse's Notes [facility] Name: Laurel Hassan Age: 72 yrs Sex: Female : 1950 Arrival Date: 02/25/2023 Time: 11:06 Bed IW1 Private MD: Diagnosis: Chest pain, unspecified-wall;Essential (primary) hypertension;Type 2 diabetes mellitus with hyperglycemia;Unspecified kidney failure-chronic Presentation: 02/25 11:35 Chief complaint: Patient states: chest pain started last night with nausea. Coronavirus ko1 screen: At this time, the client does not indicate any symptoms associated with coronavirus-19. Ebola Screen: No symptoms or risks identified at this time. Initial Sepsis Screen: Does the patient meet any 2 criteria? No. Patient's initial sepsis screen is negative. Does the patient have a suspected source of infection? No. Patient's initial sepsis screen is negative. Risk Assessment: Do you want to hurt yourself or someone else? Patient reports no desire to harm self or others. Onset of symptoms is unknown. 11:35 Method Of Arrival: Ambulatory ko1 11:35 Acuity: LUCA 3 ko1 Triage Assessment: 11:36 General: Appears in no apparent distress. Behavior is calm, cooperative, appropriate ko1 for age. Pain: Complains of pain in chest. Cardiovascular: Reports chest pain, nausea. Historical: - Allergies: 11:36 Codeine; ko1 - PMHx: 11:36 Diabetes - NIDDM; Hypertension; ko1 - Immunization history:: Adult Immunizations up to date. - Social history:: Smoking status: Patient denies any tobacco usage or history of. Screenin:48 [facility] ED Fall Risk Assessment (Adult) Score/Fall Risk Level 3 or more points = High jl7 Risk Oriented to surroundings, Maintained a safe environment. Abuse screen: Denies threats or abuse. Denies injuries from another. Nutritional screening: No deficits noted. Tuberculosis screening: No symptoms or risk factors identified. Assessment: 13:48 Reassessment: Patient appears in no apparent distress at this time. Pt reports jl7 conitnued mid sternal CP, sharp, hurts worse with deep breaths, denies nausea and does not want Zofran. Pt requesting to eat, pt provided with sandwich and water and placed by in lobby at this time. 15:44 Reassessment: No changes from previously documented assessment. Patient and/or family ll1 updated on plan of care and expected duration. Pain level reassessed. 15:55 Reassessment: No changes from previously documented assessment. Patient and/or family ll1 updated on plan of care and expected duration. Pain level reassessed. 15:55 Pain: Pain does not radiate. Pain began 2-3 days ago. ll1 Vital Signs: 11:35 BP 143 / 75; Pulse 52; Resp 14; Temp 97.4; Pulse Ox 100% ; Weight 100 kg; ll1 15:44 BP 141 / 71; Pulse 55; Resp 15; Pulse Ox 100% ; ll1 ED Course: 11:15 Patient arrived in ED. im 11:19 Brian Gomez MD is Attending Physician. kameron 11:36 Triage completed. ko1 11:36 Arm band placed on right wrist. Patient placed in waiting room, Patient notified of ko1 wait time. 11:40 Inserted saline lock: 20 gauge in right antecubital area, using aseptic technique. kj1 Blood collected. 11:40 Initial lab(s) drawn, by me, sent to lab. kj1 12:08 Urinalysis w/ reflexes Sent. kj1 13:09 XRAY Chest (1 view) In Process Unspecified. EDMS 13:48 Patient has correct armband on for positive identification. Provided Education on: jl7 tests and medications. 13:48 No provider procedures requiring assistance completed. Patient maintains SpO2 jl7 saturation greater than 95% on room air. 14:22 US Extremity Venous W Compression Steve In Process Unspecified. EDMS 14:49 Troponin HS: 2pm Sent. em1 15:20 Michael Hutchison MD is Referral Physician. kameron 15:44 IV discontinued, intact, bleeding controlled, No redness/swelling at site. Pressure ll1 dressing applied. 15:55 Cardiac monitoring not applicable on this patient. ll1 Administered Medications: 13:46 Drug: NS 0.9% IV 1000 ml IV at 125 ml/hr continuous Route: IV; Rate: 125 ml/hr; Site: jl7 right antecubital; 15:55 Follow up: Response: No adverse reaction; IV Status: Completed infusion; IV Intake: ll1 500ml 13:46 Drug: Aspirin PO Chewable Tablet 324 mg PO once; 81 mg tablets x 4 Route: PO; jl7 15:53 Follow up: Response: No adverse reaction 1 13:48 Not Given (Patient Refused): ondansetron 4 mg IVP once; over 2 minutes jl7 15:53 Drug: Hydrocodone-Acetaminophen PO (7.5 mg-325 mg) 1 tabs PO once Route: PO; ll1 15:55 Follow up: Response: No adverse reaction 1 15:53 Drug: Ondansetron Oral Disintegrating Tablet Oral Disintegrating Tablet 4 mg PO once ll1 Route: PO; 15:55 Follow up: Response: No adverse reaction 1 Medication: 13:48 VIS not applicable for this client. jl7 Intake: 15:55 IV: 500ml; Total: 500ml. 1 Outcome: 15:20 Discharge ordered by . kameron 15:47 Patient left the ED. 1 15:47 Discharged to home via wheelchair, 1 15:47 Condition: stable 15:47 Discharge instructions given to patient, Instructed on discharge instructions, follow up and referral plans. 15:54 Patient left the ED. [facility] Signatures: Dispatcher [employer] EDMS Brian Gomez MD MD cha Martinez, Eric 1 Eric Brown RN RN [email or web address] Amy Guy kj1 Kirit Goins RN RN ll1 Haydee Maravilla RN RN ko1 Rupinder Mullen Corrections: (The following items were deleted from the chart) 11:48 11:47 Initial lab(s) drawn, by me, sent to lab. kj1 kj1 15:53 11:35 BP 143 / 75; Pulse 52bpm; Resp 14bpm; Pulse Ox 100%; Temp 97.4F; ko1 ll1
--- NOTE | 2023-02-25 15:48 | RAD REPORT ---
EXAM DESCRIPTION: USExtrem Venous W Compress Bil02/25/2023 2:31 pm CLINICAL HISTORY: Leg pain COMPARISON: 2019 FINDINGS: The common femoral, superficial femoral, greater saphenous, popliteal and posterior tibial veins bilaterally are compressible and demonstrate augmentation. Doppler demonstrates good flow. Grayscale, color and spectral analysis performed on all vessels IMPRESSION: No evidence of deep venous thrombosis involving either lower extremity.
[2023-02-25] MEDS ORDERED: HYDROCODONE/APAP 7.5/325 MG TAB ONE (16:03)
[2023-02-25] MEDS ORDERED: ONDANSETRON 4 MG (ODT) TAB ONE (16:03)
[2023-02-25 16:11] VITALS: TEMP 97.4; O2SAT 100
[2023-02-25 16:14] VITALS: BP 141/71
--- NOTE | 2023-02-26 14:49 | EKG ---
Test Date: 2023-02-25 Test Time: 15:26:11 [employer] Drawer Hand: OSCAR MEASUREMENT RESULTS: Intervals: Rate: 67 LA: 158 QRSD: 84 QT: 438 QTc: 462 [place]: P: 31 LA: 158 QRS: 49 T: 75 INTERPRETIVE STATEMENTS: Normal sinus rhythm ST abnormality, possible digitalis effect Abnormal ECG Compared to ECG 02/25/2023 11:31:46 ST (T wave) deviation now present Sinus bradycardia no longer present Sinus arrhythmia no longer present Electronically Signed On 02-26-23 14:45:50 [employer] by Michael Hutchison
== END 2023-02-25 15:54 | disposition home or self-care (01) ==
LOC: ER 11:06
DX: R07.89 Other chest pain (principal); I10 Essential (primary) hypertension; E11.65 Type 2 diabetes mellitus with hyperglycemia; N18.9 Chronic kidney disease, unspecified; Z88.5 Allergy status to narcotic agent
CPT/HCPCS: 96361; 93005 ×2; 85025; 80048; 36415; 83735; 85610; 80076; 81003; 84484 ×2; 83690; 83880; 71045; 93970; 96360; 99285; Q0162; J7030; J2405